=== PATIENT | female | born 1995 | race Caucasian/White ===

== ENCOUNTER 2017-03-08 18:43 | Emergency (ER) | payer SELFPAY ==
[2017-03-08] MEDS ORDERED: Ibuprofen 600 MG TAB ONE (19:41)
[2017-03-08] MEDS ORDERED: HYDROcodone/Acetaminophen 5/325 mg Tablet ONE (19:41)
== END 2017-03-08 19:52 | disposition home or self-care (01) ==
LOC: SCSER 18:43
DX: J10.1 Influenza due to other identified influenza virus with other respiratory manifestations (principal); J45.909 Unspecified asthma, uncomplicated
CPT/HCPCS: 99283

== ENCOUNTER 2017-03-14 10:11 | Emergency (ER) | payer SELFPAY ==
[2017-03-14 10:52] LABS: Bilirubin Negative (Negative); Blood, Urine Negative (Negative); Glucose, Urine (Dipstick) Negative (Negative); Ketone, Urine 15 mg/dL (Negative); Nitrite Negative (Negative); Protein, Urine (Dipstick) Negative (Neg-Trace)
[2017-03-14 11:01] LABS: Bacteria/HPF 1+ HPF (None Seen); RBC/HPF 0-3 HPF (0-3); WBC/HPF 0-3 HPF (0-3)
[2017-03-14] MEDS ORDERED: Azithromycin 250 MG TAB ONE (14:09)
[2017-03-14] MEDS ORDERED: cefTRIAXone\\ROCEPHIN 250 MG VIAL ONE (14:09)
[2017-03-14] MEDS ORDERED: Lidocaine 1% PF 5 ML VIAL ONE (14:09)
== END 2017-03-14 14:15 | disposition home or self-care (01) ==
LOC: SCSER 10:11
DX: O99.89 Other specified diseases and conditions complicating pregnancy, childbirth and the puerperium (principal); R10.2 Pelvic and perineal pain; O99.511 Diseases of the respiratory system complicating pregnancy, first trimester; J45.909 Unspecified asthma, uncomplicated; Z3A.01 Less than 8 weeks gestation of pregnancy
CPT/HCPCS: 81003; 81015; 81025; 87480; 87491; 87510; 87591; 87660; 96372; J0696; J2001

== ENCOUNTER 2017-04-03 14:18 | Emergency (ER) | payer OTHER, SELFPAY ==
[2017-04-03 14:55] LABS: Bilirubin Negative (Negative); Blood, Urine Trace (Negative); Clarity Slightly Cloudy (Clear); Glucose, Urine (Dipstick) Negative (Negative); Leukocyte Moderate (Negative); Nitrite Positive (Negative); Protein, Urine (Dipstick) 30 mg/dL (Neg-Trace); Urobilinogen 0.2 mg/dL (0.2-1.0)
[2017-04-03 15:01] LABS: Specific Gravity, Urine 1.028 (1.002-1.036)
[2017-04-03 15:04] LABS: WBC/HPF 21-50 HPF (0-3)
[2017-04-03 15:05] LABS: Bacteria/HPF 3+ HPF (None Seen)
[2017-04-03 15:06] LABS: Hyaline Casts/LPF 0-3 HYALINE CAST LPF (0-3 Hyaline)
--- NOTE | 2017-04-03 16:31 | ULT ---
PELVIC ULTRASOUND 04/03/17 HISTORY: Pelvic pain, early . FINDINGS: The uterus measures 8.8 cm x 5.1 cm x 6.3 cm. There is a fluid collection seen in the endometrial can al. A pole as well as yolk sac are visualized. Cardiac doppler does demonstrate heart ton es with a heart rate of 139 beats per minute. The crown-rump length measures 1.3 cm which is co nsistent with gestational age by ultrasound of 7 weeks and 4 days with BARBARA on 11/16/17. Gestational ag e by the last menstrual period is 6 weeks, and 3 days. There are no findings to suggest a subchorionic hemorrhage. The fallopian tubes are not seen bilaterally. The ovaries demonstrate a normal transabdominal sonogra phic appearance with the right ovary measuring 3.8 cm x 1.5 cm and the left ovary measuring 1.6 cm x 2.8 cm x 1.8 cm. No free fluid is seen in the cul-de-ac. IMPRESSION: 1. Single intrauterine gestation with heart tones documented. Gestational age by measureme nt of the crown-rump length is 7 weeks and 4 days with BARBARA on 11/16/17. 2. Normal appearing bilateral ovaries. POS: [facility]
== END 2017-04-03 16:49 | disposition home or self-care (01) ==
LOC: SCSER 14:18
DX: O23.11 Infections of bladder in pregnancy, first trimester (principal); O99.89 Other specified diseases and conditions complicating pregnancy, childbirth and the puerperium; R10.30 Lower abdominal pain, unspecified; O99.511 Diseases of the respiratory system complicating pregnancy, first trimester; J45.909 Unspecified asthma, uncomplicated; Z3A.01 Less than 8 weeks gestation of pregnancy
CPT/HCPCS: 36415; 76856; 81003; 81015; 84702; 87077; 87086; 87186; 93976

== ENCOUNTER 2017-05-05 15:27 | Emergency (ER) | payer OTHER ==
[2017-05-05 16:40] LABS: Bilirubin Negative (Negative); Blood, Urine Negative (Negative); Glucose, Urine (Dipstick) Negative (Negative); Leukocyte Negative (Negative); Nitrite Negative (Negative); Protein, Urine (Dipstick) 30 mg/dL (Neg-Trace)
[2017-05-05 16:41] LABS: Clarity Hazy (Clear); Specific Gravity, Urine 1.025 (1.002-1.036)
[2017-05-05 16:51] LABS: RBC/HPF None Seen HPF (0-3)
[2017-05-05 16:52] LABS: Bacteria/HPF 3+ HPF (None Seen)
== END 2017-05-05 17:02 | disposition home or self-care (01) ==
LOC: SCSER 15:27
DX: O9A.211 Injury, poisoning and certain other consequences of external causes complicating pregnancy, first trimester (principal); S39.012A Strain of muscle, fascia and tendon of lower back, initial encounter; O99.511 Diseases of the respiratory system complicating pregnancy, first trimester; J45.909 Unspecified asthma, uncomplicated; Z3A.11 11 weeks gestation of pregnancy; X58.XXXA Exposure to other specified factors, initial encounter
CPT/HCPCS: 81003; 81015; 99283

== ENCOUNTER 2017-05-16 14:41 | Emergency (ER) | payer OTHER | END 2017-05-16 15:25 | disposition home or self-care (01) | LOC: SCSER 14:41 | DX: O21.9 Vomiting of pregnancy, unspecified (principal); O99.511 Diseases of the respiratory system complicating pregnancy, first trimester; J45.909 Unspecified asthma, uncomplicated; O98.311 Other infections with a predominantly sexual mode of transmission complicating pregnancy, first trimester; Z3A.13 13 weeks gestation of pregnancy; Z79.899 Other long term (current) drug therapy | CPT/HCPCS: 99283 ==

== ENCOUNTER 2017-05-28 19:41 | Emergency (ER) | payer OTHER | END 2017-05-28 20:07 | disposition home or self-care (01) | LOC: SCSER 19:41 | DX: O99.89 Other specified diseases and conditions complicating pregnancy, childbirth and the puerperium (principal); R51 Headache; O99.512 Diseases of the respiratory system complicating pregnancy, second trimester; J45.909 Unspecified asthma, uncomplicated; Z3A.15 15 weeks gestation of pregnancy | CPT/HCPCS: 99283 ==

== ENCOUNTER 2017-06-25 19:23 | Emergency (ER) | payer OTHER ==
[2017-06-25 20:59] LABS: Bilirubin Negative (Negative); Blood, Urine Negative (Negative); Clarity Clear (Clear); Glucose, Urine (Dipstick) Negative (Negative); Leukocyte Trace (Negative); Nitrite Negative (Negative); Protein, Urine (Dipstick) Negative (Neg-Trace); pH, Urine 6.5 (5.0-9.0)
[2017-06-25 21:04] LABS: Bacteria/HPF 2+ HPF (None Seen); RBC/HPF 0-3 HPF (0-3); Squamous Epithelial 0-3 HPF (0-3)
== END 2017-06-25 21:43 | disposition home or self-care (01) ==
LOC: SCSER 19:23
DX: O99.89 Other specified diseases and conditions complicating pregnancy, childbirth and the puerperium (principal); M54.5 Low back pain; O99.512 Diseases of the respiratory system complicating pregnancy, second trimester; J45.909 Unspecified asthma, uncomplicated; Z3A.19 19 weeks gestation of pregnancy
CPT/HCPCS: 81003; 81015; 87086; 99283

== ENCOUNTER 2017-07-27 19:36 | Emergency (ER) | payer OTHER ==
[2017-07-27 19:58] LABS: Bilirubin Negative (Negative); Blood, Urine Negative (Negative); Clarity Hazy (Clear); Glucose, Urine (Dipstick) Negative (Negative); Leukocyte Trace (Negative); Nitrite Negative (Negative); Protein, Urine (Dipstick) 30 mg/dL (Neg-Trace); Specific Gravity, Urine 1.028 (1.002-1.036); Urobilinogen 0.2 mg/dL (0.2-1.0); pH, Urine 6.5 (5.0-9.0)
[2017-07-27 20:04] LABS: Bacteria/HPF 2+ HPF (None Seen); RBC/HPF None Seen HPF (0-3)
== END 2017-07-27 20:39 | disposition home or self-care (01) ==
LOC: SCSER 19:36
DX: O99.89 Other specified diseases and conditions complicating pregnancy, childbirth and the puerperium (principal); M54.5 Low back pain; O99.352 Diseases of the nervous system complicating pregnancy, second trimester; G89.29 Other chronic pain; O99.342 Other mental disorders complicating pregnancy, second trimester; O99.512 Diseases of the respiratory system complicating pregnancy, second trimester; F41.9 Anxiety disorder, unspecified; J45.909 Unspecified asthma, uncomplicated; Z3A.24 24 weeks gestation of pregnancy
CPT/HCPCS: 81003; 81015; 87086; 99283

== ENCOUNTER 2017-08-13 16:04 | Day surgery (SDC) | payer OTHER ==
[2017-08-13 16:48] VITALS: BP 119/62; TEMP 98.3; BMI 25.9
--- NOTE | 2017-08-13 18:29 | PDOC.LDHP ---
Labor and Delivery H&P Chief complaint: contractions HPI: 22 at 26.3 wks, unknown how she is dated, who was sent here from [facility] with concern for contractions and loss of mucus plug. Pt states that she has been brenden most of the day. She denies loss of fluid, vaginal bleeding, abd pain, or decreased movement. Her previous resulted in at 30 weeks gestation. Today at [facility] she was positive for BV and vaginal candidiasis. Her SVE found her to be dilated to 1cm. She due to her history she was had ordered to have progesterone, however her compliance with treatment has been intermittent. Current gestational age (weeks): 26 (26.3) Due date: 11/16/17 Dating criteria: other (unknown) Grav: 2 Para: 1 (0101) Current complications: other (BV and vaginal candidiasis) Current medications: pre- vitamins, other (progesterone) Social history: none - Physical Exam Vital signs reviewed and normal: yes General: NAD Heart: RRR Lungs: CTAB Abdomen: gravid Extremeties: no edema FHT: category 1, variability present, absent or minimal variables [place] contractions every: None - Vaginal Exam cm dilated: 1 Effacement: 50% Station: -3 - OB Labs Blood type: unknown RH: unknown Antibody Screen: unknown HIV: unknown RPR: unknown HEPSAg: unknown 1 hour GCT: unknown GBS: unknown Urine drug screen: not done - Assessment 1. 2nd trimester , evaluation for labor 2. BV 3. Vaginal kali - Plan -: Continue to monitor FHT, currently Cat 1 strip.Pt was 1cm in clinic and 1cm here after 1 hour of monitoring. Does not appear to be changing, there are no contractions on monitor. Will order UA. Assuming normal result, will send home with followup as scheduled outpatient Regarding BV, rx has been called in from [facility]. 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 <Joe Henriquez - Last Filed: 08/13/17 18:25> <Sukhjinder Rodriguez - Last Filed: 08/14/17 07:09> Allergies/Adverse Reactions: Allergies Allergy/AdvReac Type Severity Reaction Status Date / Time No Known Drug Allergies Allergy Verified 08/13/17 16:48 Attending Addendum - Attending Addendum Date/Time: 08/14/17 0705 I personally evaluated the patient and discussed the management with Dr. Henriquez and Dr. Olivarez. I agree with and repeated the History, Examination, Assessment and Plan documented above with any addition or exceptions noted below. At the time of my evaluation no contractions, +FM, denies preE symptoms. She is frustrated she is still in the hospital. Unable to send FFN d/t recent exam x 2 prior to me being called. PMH/PSH: noncontributory No fever, chills, dysuria, urgency FHT: cat 1 [place]: no contractions SVE: unchanged after several hours between clinic and here A/P: tPTL with no contractions and low suspicion for CI. Will hold off on cervical length after discussing with PCP. Tx BV. Follow up at [facility]. Return precauations discussed. <Sukhjinder Rodriguez - Last Filed: 08/14/17 07:09>
[2017-08-13 19:38] LABS: Bilirubin Negative (Negative); Blood, Urine Negative (Negative); Clarity CLEAR (Clear); Glucose, Urine (Dipstick) Negative (Negative); Leukocyte Negative (Negative); Nitrite Negative (Negative); Protein, Urine (Dipstick) Negative (Neg-Trace); Specific Gravity, Urine 1.011 (1.002-1.036)
[2017-08-13 19:40] LABS: Bacteria/HPF None Seen HPF (None Seen); Hyaline Casts/LPF 0-3 HYALINE CAST LPF (0-3 Hyaline); RBC/HPF 0-3 HPF (0-3); Squamous Epithelial 0-3 HPF (0-3); WBC/HPF 0-3 HPF (0-3)
== END 2017-08-13 20:02 | disposition home or self-care (01) ==
LOC: L&D/OP 16:04
PROVIDERS: ATTEND Student in an Organized Health Care Education/Training Program
DX: O47.02 False labor before 37 completed weeks of gestation, second trimester (principal); O98.812 Other maternal infectious and parasitic diseases complicating pregnancy, second trimester; B37.9 Candidiasis, unspecified; O23.592 Infection of other part of genital tract in pregnancy, second trimester; N76.0 Acute vaginitis; B96.89 Other specified bacterial agents as the cause of diseases classified elsewhere; Z79.818 Long term (current) use of other agents affecting estrogen receptors and estrogen levels; Z79.899 Other long term (current) drug therapy; Z3A.26 26 weeks gestation of pregnancy
CPT/HCPCS: 81001; 99283

== ENCOUNTER 2017-09-10 17:30 | Observation (INO) | payer OTHER ==
[2017-09-10 18:01] VITALS: BMI 26.9
[2017-09-10 18:40] LABS: #Eosinphils 0.1 thou/uL (0.0-0.7); #Lymphocytes 1.3 thou/uL (1.20-3.40); #Monocytes 0.5 thou/uL (0.11-0.59); #Neutrophils 5.3 thou/uL (1.40-6.50); %Basophils 0.1 % (0.0-1.0); %Eosinophils 1.1 % (0.0-10.0); %Lymphocytes 17.9 % (21.0-51.0); %Monocytes 6.8 % (0.0-10.0); Hemoglobin 8.8 g/dL (12.0-16.0); Mean Corpuscular HGB CONC 32.8 g/dL (32.0-36.0); Mean Corpuscular Hemoglobin 26.9 pg (27.0-31.0); Mean Platelet Volume 7.4 fL (7.4-10.4); Platelet Count 191 thou/uL (130-400); RBC Distribution Width 12.2 % (11.5-14.5); Red Blood Cell (RBC) Count 3.29 mill/uL (4.20-5.40); White Blood Cell (WBC) Count 7.2 thou/uL (4.8-10.8)
[2017-09-10 18:55] LABS: Glucose 124 mg/dL (70-105)
[2017-09-10 19:37] LABS: Syphilis Antibody Nonreactive (Nonreactive); Syphilis Antibody Index 0.02 S/CO (<1.00 Non-Reactive)
[2017-09-10 19:42] LABS: Bilirubin Negative (Negative); Blood, Urine Negative (Negative); Clarity CLEAR (Clear); Glucose, Urine (Dipstick) 500 mg/dL (Negative); Leukocyte Negative (Negative); Nitrite Negative (Negative); Protein, Urine (Dipstick) Negative (Neg-Trace); Specific Gravity, Urine 1.009 (1.002-1.036); pH, Urine 6.5 (5.0-9.0)
[2017-09-10 19:52] LABS: HIV (1/2) Antibody/Antigen Non-Reactive (NonReactive); HIV 1/2 INDEX 0.12 S/CO (<1.00)
[2017-09-10] MEDS ORDERED: Clotrimazole 2% 3 Day Vag Cr 22.2 GM TUBE VAG SCH (20:00)
[2017-09-10 20:16] LABS: Medtox Reader # READER 1; THC/Cannabinoid Screen Detected (NotDetected)
--- NOTE | 2017-09-10 20:16 | PDOC.LDHP ---
Labor and Delivery H&P Chief complaint: contractions HPI: 22 yo @ 30.3 by LMP consistent w/ 7.4 US presents for concern of labor. Pt has an obstetrical hx positive for labor in her first and delivered vaginally @ 30.3 then. She has not had any noted complication in this until now. She was given progesterone earlyier this ;however, she has not ocntinued progesterone therapy. [facility] and her cervical exam was noted to be 3cm,50%, midposition and soft. She was sent for further evaluation at [facility]. US here shows a cervical length of 2.2cm, anterior placenta, vertex presentation an abi of 6.6 and size measuring 30.2. She had very rare contractions which have since subsided after IVF bolus. Her repeat cervical check was unchanged approx 4 hours from original. Current gestational age (weeks): 30 (+3) Dating criteria: last menstrual period, first trimester ultrasound Grav: 2 Para: 1 (0101) Current complications: none Abnormal US findings: No Current medications: none (Has not taken vitamins for approx 28 weeks) Previous surgical history: other Social history: drug use (marijuana) - Physical Exam Vital signs reviewed and normal: yes General: NAD Heart: RRR Lungs: CTAB Abdomen: NTTP Extremeties: no edema FHT: category 1 [place] contractions every: none - Vaginal Exam cm dilated: 3 Effacement: 50% Station: -3 - OB Labs Blood type: A RH: positive Antibody Screen: negative HIV: negative RPR: negative HEPSAg: negative 1 hour GCT: negative GBS: unknown Urine drug screen: positive Rubella: immune - Assessment L&D Assessment: labor - Plan Plan: admit to L&D -: 1) labor, suspected -admit l&d - celestone X2, monitor - 3T labs - DESIGN ENGINEERING TECHNICIAN# - continuous monitoring for now - IL LR bolus - will continue to monitor for s/s labor - pt instructed to inform nurse if any LOF, vaginal bleeding or contractions - no mag now as pt was unchanged from previous cervical exam, if any change at all or continuing contraction will alter management course at that time - GBS swab pending, ppx if s/s of labor persist 2) Drug abuse in : - consider CM consult - prenatal genetic counselor on cessation <Dedrick Lynn - Last Filed: 09/10/17 23:19> <Logan Martínez - Last Filed: 09/11/17 04:42> Allergies/Adverse Reactions: Allergies Allergy/AdvReac Type Severity Reaction Status Date / Time No Known Drug Allergies Allergy Verified 08/13/17 16:48 Attending Addendum - Attending Addendum Date/Time: 09/11/17 0441 I personally evaluated the patient and discussed the management with Dr. Lynn and Sher. I agree with the History, Examination, Assessment and Plan documented above with any addition or exceptions noted below. <Logan Martínez - Last Filed: 09/11/17 04:42>
[2017-09-10 20:17] LABS: Amphetamine Not Detected (NotDetected); Barbiturates Screen Not Detected (NotDetected); Benzodiazepine Screen Not Detected (NotDetected); Cocaine Metabolite Screen Not Detected (NotDetected); Medtox Control Line Valid? VALID (VALID); Methadone Not Detected (NotDetected); Methamphetamine Not Detected (NotDetected); Opiate Screen Not Detected (NotDetected); Oxycodone Screen Not Detected (NotDetected); Phencyclidine (PCP) Not Detected (NotDetected); Tricyclic Screen Not Detected (NotDetected)
[2017-09-10] MEDS ORDERED: Promethazine HCl 25 MG/ML VIAL IM PRN (20:18)
[2017-09-10] MEDS ORDERED: Ondansetron HCl/PF 4 MG/2 ML Vial IVP PRN (20:18)
[2017-09-10] MEDS ORDERED: Lactated Ringer's 1,000 ML IV SCH (20:30)
--- NOTE | 2017-09-10 20:38 | ULT ---
ULTRASOUND OBSTETRICAL COMPLETE: 09/10/2017 HISTORY: Pre-term labor in a 22-year-old female. FINDINGS: number: Jones. lie: Cephalic. Maternal cervix: 2 cm long and closed. Placenta: Anterior. No placenta previa. Amniotic fluid volume: Subjectively low. MARILU 6.5 cm. heart rate: 173 bpm The following anatomy is visualized, with no evidence of anomalies: bladder, bilateral kidneys, three-vessel cord, four-chamber heart, and stomach. The rest of the anatomy is poor visualized. biometry: Head circumference (HC): 28.0 cm 30w 4d Biparietal diameter (BPD): 7.4 cm 29w 6d Abdominal circumference (AC): 25.9 cm 30w 0d Femur length (FL): 5.7 cm 30w 0d Average ultrasound age (AUA): 30w 2d Estimated date of confinement (EDC): 11/17/2017 Last menstrual period (LMP): 02/09/2017 Gestational age by LMP: 30w 3d Estimated weight (EFW): 1505 g, +/- 223 g (3 lbs 5 oz, +/- 8 oz). IMPRESSION: 1. Live third trimester intrauterine gestation. 2. Estimated gestational age of 30 weeks, 2 days. 3. Cephalic lie. 4. Oligohydramnios. 5. Cervix 2 cm, possibly effaced. DOC Springer POS: [facility]
--- NOTE | 2017-09-10 20:50 | PDOC.EVN ---
Event Note - Event Note Event Note: Date/Time: 09/10/172044 I personally evaluated the patient and discussed the management with Dr. Lynn and Dr Olivarez. I agree with the History, Examination, Assessment and Plan. See H&P. Patient was noted to have CTXs earlier today but which has resolved currently Seen in Clinic today by Dr Olivarez who noted 3cm dilation. ultrasound reviewed. Labs reviewed. GBS, GC/Chlamydia, VP3 obtained. Candidasis noted. Will treat. Heart tones have a baseline of 150 with accels noted. In light of prior delivery, we will initiate steroids and observe for CTXs and reassess for cervical change. If progresses into Labor, will initiate Mag for neuroprotection.
[2017-09-10] MEDS: Betamet Acet/Betamet Na Ph 30 MG/5 ML VIAL IM SCH (21:09)
--- NOTE | 2017-09-10 22:13 | PDOC.EVN ---
Event Note - Event Note Event Note: Nurse reports cervix remains 3cm dilated on recheck. No CTX on Tocodynamometer noted. FHTs remain with baseline of 150 with accels. Steroids initiated. She is not in labor at this time. Continue monitoring. +MJ on UDS.
[2017-09-11 01:10] LABS: HBSAg Index 0.16 S/CO (0-0.99); Hep B Surf Ag Non-Reactive S/CO (NonReactive)
[2017-09-11] MEDS: Cepastat Lozenges 1 LOZ PO PRN ×3 (02:08→10:31)
--- NOTE | 2017-09-11 02:58 | PDOC.LDPN ---
Labor & Delivery Progress Note - Subjective Subjective: comfortable - Objective Vital signs reviewed and normal: yes General: NAD Uterine fundus: atonic Dilation: 3 Effacement: 50% Station: -3 FHT: category 1, variability present [place] contractions every: None Plan: continue plan of care -: Threatened labor) - no contraction on monitor and no cervaicl change - intermittent monitoring q4hr - if any evidence of contractions recheck cervix + GBS ppx and mag for neuro protection, otherwise continue plan of care and give celestone x2
--- NOTE | 2017-09-11 07:56 | PDOC.LDPN ---
Labor & Delivery Progress Note - Subjective Subjective: comfortable, other (patient denies ROM, bleeding, discharge, <1 min cxns while sleeping) - Objective Vital signs reviewed and normal: yes General: NAD Uterine fundus: non tender FHT: category 1 [place] contractions every: No contractions on monintorring, minor irritability - Assessment (1) History of delivery Code(s): Z87.51 - PERSONAL HISTORY OF PRE-TERM LABOR Current Visit: Yes Status: Acute -: PE Gen: No acute distress, answers questions appropriately CV: RRR, no murmur Pulm: CTAB, no increased work of breathing Abd: gravid, NTTP Ext: pulses intact, no edema 1) Labor rule out - celestone at 2030 on 09/10 - no cervical change at last check - 3T labs negative - VP3 shows zoya - no contractions after bolus, on monitorring overnight - intermittent monitioring overnight - GBS swab pending, ppx if s/s of labor persist 2) Drug abuse in : - cannabis positive on UDS - college and career counselor on cessation 3) Zoya - clotrimazole cream
[2017-09-11 08:32] VITALS: TEMP 99.2
[2017-09-11] MEDS ORDERED: diphenhydrAMINE 25 MG CAP PO PRN (10:21)
[2017-09-11] MEDS ORDERED: Acetaminophen 500 MG TAB PO PRN (10:21)
[2017-09-11 20:44] VITALS: BP 119/61
[2017-09-11] MEDS ORDERED: Clotrimazole 2% 3 Day Vag Cr 22.2 GM TUBE VAG SCH ×2 (21:00)
[2017-09-11] MEDS: Betamet Acet/Betamet Na Ph 30 MG/5 ML VIAL IM SCH (21:13)
[2017-09-11 21:20] LABS: Chlamydia by PCR DETECTED (NotDetected)
--- NOTE | 2017-09-12 07:36 | PDOC.LDPN ---
Labor & Delivery Progress Note - Subjective Subjective: comfortable (Reports occasional back contractions. No VB or LF. Pos FM. ) - Objective Vital signs reviewed and normal: yes General: NAD, resting Uterine fundus: non tender SVE: Deferred. Last 09/10/17 = FHT: category 1 (FHT reactive. ) - Assessment (1) labor in third trimester Code(s): O60.03 - LABOR WITHOUT DELIVERY, THIRD TRIMESTER Status: Acute Qualifiers: labor delivery status: without delivery Qualified Code(s): O60.03 - labor without delivery, third trimester Comment: Patient 30.4 wks by 7.4 wk sono admitted for labor. Appears to have occured over the weekend sponateously and has since stopped except for the occasional contractions. Patient has recieved 1st dose BMZ. Has not required tocolytics or mag for neuroprotection. Infection workup negative except for candidia. SVE unchanged from 09/10 -- . Fetus is cephalic. EFW at 26%. MARILU borderline at 6 cm. One individual pocket of 3.7 cm. Will need to discuss case with COATING OPERATOR for monitoring in hospital due to risk of PTD prior to 32 wks with risk. Would consider watching through the weekend. Will need repeat sono with BPP. (2) Low amniotic fluid Code(s): O41.00X0 - OLIGOHYDRAMNIOS, UNSP TRIMESTER, NOT APPLICABLE OR UNSP Status: Acute Qualifiers: Fetus number: single or unspecified fetus Trimester: third trimester Qualified Code(s): O41.03X0 - Oligohydramnios, third trimester, not applicable or unspecified Comment: Needs repeat BPP with dopplers in AM. Plan: continue plan of care
[2017-09-12 11:29] LABS: GC by PCR Not Detected (NotDetected)
== END 2017-09-11 22:45 | disposition home or self-care (01) ==
LOC: L&D/OP 17:30 → L&D 20:34
PROVIDERS: ADMIT Family Medicine; ATTEND Family Medicine
DX: O60.03 Preterm labor without delivery, third trimester (principal); O41.03X0 Oligohydramnios, third trimester, not applicable or unspecified; F19.10 Other psychoactive substance abuse, uncomplicated; Z3A.30 30 weeks gestation of pregnancy
CPT/HCPCS: 36415; 76815; 80306; 81003; 82947; 85025; 86780; 87081; 87086; 87340; 87389; 87480; 87491; 87510; 87591; 87660; 96372; 99285; G0378; J0702

== ENCOUNTER 2017-09-12 12:21 | Inpatient (IN) | payer OTHER ==
[2017-09-12 13:08] VITALS: BMI 26.1
[2017-09-12] MEDS ORDERED: Ondansetron ODT 4 MG TAB PO PRN (13:42)
[2017-09-12] MEDS ORDERED: Ondansetron HCl/PF 4 MG/2 ML Vial IVP PRN ×2 (13:42→13:45)
[2017-09-12] MEDS ORDERED: Lactated Ringer's 1,000 ML IV SCH (13:45)
[2017-09-12] MEDS ORDERED: Promethazine HCl 25 MG/ML VIAL IM PRN (13:45)
[2017-09-12] MEDS ORDERED: Acetaminophen 500 MG TAB PO PRN (13:45)
[2017-09-12] MEDS ORDERED: Butorphanol Tartrate 1 MG/ML VIAL SLOW IVP PRN (13:45)
--- NOTE | 2017-09-12 14:07 | PDOC.LDHP ---
Labor and Delivery H&P Chief complaint: contractions HPI: 22yo @ 30.5wk by LMP c/w 7.4wk US who presents to [facility] L&D for contractions. She was sent here from her appt at [facility] today where she had an NST due to high risk status and was noted to be brenden approx q5min. She additionally was treated for Chlamydia with 1000mg Azithromycin po and then became nauseous and vomited. She was sent here for further evaluation and management. Pt was recently here 09/10-09/12 for threatened PTL after a cervical exam in the outpt setting was noted to be 3/50/-2. She was noted to have ctx upon arrival q 5-7 min, which then spaced out after 1L IVF bolus. During her hospital stay, she had occasional contractions but never had a regular ctx pattern and cervix remained unchanged. She received betamethasone x 2 q24hr with last dose 2100 on 09/11/17. She then requested discharge home with outpt follow up and was seen this morning at [facility] as above. Since her discharge home, pt stated her ctx picked up at about 2am and became stronger. Feeling them all in her back. Endorses blood-tinged mucus, but no overt VB. No noted LOF. Nml Mvmt. OB Hx sig for 1st PTL & delivery at 30.3wk after Mag w/ NICU stay. US here on 09/10 showed cervical length of 2.2cm and marilu of 6.5 Current gestational age (weeks): 30 (5 days) Due date: 11/16/00 Dating criteria: last menstrual period Grav: 2 Para: 1 OB History Details: 1) prior PTL + delivery at 30wk 3days 2) insufficient care due to noncompliance 3) MJ use in 4) Low MARILU (previously measured at 6.5) this Current complications: other Abnormal US findings: Yes (CL 2.2cm, MARILU 6.5) Past Medical History: none Current medications: pre- vitamins Previous surgical history: none Allergies/Adverse Reactions: Allergies Allergy/AdvReac Type Severity Reaction Status Date / Time No Known Drug Allergies Allergy Verified 09/11/17 08:33 Social history: drug use (MJ Use (has quit), +UDS 09/10/17) - Physical Exam Vital signs reviewed and normal: yes General: breathing through contractions Heart: RRR Lungs: CTAB Abdomen: NTTP Extremeties: no edema FHT: category 1 [place] contractions every: difficult to pic up on external toco, but q 2-7min - Vaginal Exam cm dilated: 3 (3-4/60/-2 per RN) Effacement: 50% Station: -2 - OB Labs Blood type: A RH: positive Antibody Screen: negative HIV: negative RPR: negative HEPSAg: negative 1 hour GCT: negative GBS: unknown Urine drug screen: positive (marijuana) Rubella: immune - Assessment L&D Assessment: labor - Plan Plan: observation in L&D -: 22yo at 30.5wk here with painful regular contractions- 1) Threatened PTL- cervical exam similar to 1-2 hrs previously upon arrival, difficulty picking up ctx on toco but appear to be painful & regular. give IVF. s/p betamethasone x 2 (last dose 2100- 09/11). Will start Mag sulfate for neuroprotection & give indomethacin as <32wk for tocolysis. PCN for GBS prophylaxis (swabbed 09/10, results pending). Will get OB Consult with Dr. Palacios given high risk and EGA. 2) Low MARILU- last MARILU 6.5, but DVP reassuring at 3.7 previously. Repeat BPP with dopplers now. Sterile spec exam to rule out ROM (amnisure would likely lead to false +). 3) chlamydia- s/p po azithromycin but vomited meds, will re-treat with IV azithromycin 1gm now. 4) vulvovaginal candidiasis- continue PV clotrimazole tx. 5) insufficient PNC- neg 1hr GTT, 3T labs wnl aside from mild anemia 6) anemia of - start po iron. 7) MJ abuse in - has since stopped per pt report. +UDS on 09/10.
[2017-09-12 14:15] LABS: Hemoglobin 9.5 g/dL (12.0-16.0); Mean Corpuscular HGB CONC 33.8 g/dL (32.0-36.0); Mean Corpuscular Hemoglobin 27.5 pg (27.0-31.0); Mean Corpuscular Volume 81.4 fL (78.0-98.0); Platelet Count 241 thou/uL (130-400); RBC Distribution Width 12.4 % (11.5-14.5); Red Blood Cell (RBC) Count 3.45 mill/uL (4.20-5.40); White Blood Cell (WBC) Count 11.7 thou/uL (4.8-10.8)
--- NOTE | 2017-09-12 14:57 | PDOC.APC ---
Antepartum Consult PAUL CHAVES is a 22 year old female , multigravida, at 30 weeks 5 days gestational weeks. Time: 151 Requesting MD: Dr Arnold/Zac with FM Reason for consult: Threatened labor at 30 weeks 5 days HPI: In brief, I discussed this case with Dr Arnold and Dr Frank in person and have reviewed the case to date. This patient is a 22 yo with a past delivery at 30 weeks, now with presentation of persistent contractions. She was actually admitted previously but left AMA last PM and has now returned for contractions but no VB or LOF. While she was noted to be 1cm last week in clinic , she is now 3-4cm/60/-2 today while she was about 3cm yesterday. She has received NICU consultation, steroids, and has been treated for Chlamydia this admit (needs retreatant as she threw up the first dose). She has good FM and is otherwise well. BPP was done just now with score 6/8 for lack of breathing and largest pocket at 2.1...no HX of LOF. Past medical: none Surgical: none Social: marijuana use (pos tox screen 3 days ago) Meds: PNV PHYSICAL: VSS afebrile Last CX was 3-4/60/-2 No gross evidence of ROM Sono recently with translabial cervical length of 2.2 (Sunday this week). EFW approx 1.5 kiols Cephalic presentation Assessment: THREATENED PTL AT 30 WEEKS AND 5 DAYS S/P CELESTONE X2, UNKNOWN gbs. Plan: 1. BPP is borderline but per ACOG may reflect EGA prematurity. OK to repeat modified BPP in 24 hrs 2. Mag sulfate for neuroprotection 3. Send off GBS 4. PCN for now until GBS returns 5. [place] for CT 6. NICU consult done 7. Needs sterile spec exam. 8. OK for single dose Indocin as EGA under 32 weeks for attempt at tocolysis per ACOG Bulletin 171
[2017-09-12 15:15] LABS: HBSAg Index 0.18 S/CO (0-0.99); Hep B Surf Ag Non-Reactive S/CO (NonReactive)
[2017-09-12 15:16] LABS: Syphilis Antibody Nonreactive (Nonreactive); Syphilis Antibody Index 0.03 S/CO (<1.00 Non-Reactive)
[2017-09-12] MEDS ORDERED: Calcium Gluc 4.6 MEQ/10 ML (100 MG/ML) SLOW IVP PRN (15:22)
--- NOTE | 2017-09-12 15:23 | ULT ---
ULTRASOUND BIOPHYSICAL PROFILE: Date: 09/12/17 HISTORY: 30 weeks labor, low MARILU previously. FINDINGS: Single live intrauterine gestation is seen with a heart rate of 153 beast/minute. MARILU measures 4.7 cm. Placenta is anteriorly located. Biophysical Profile: tone: 2 breathin movement: 2 Amniotic fluid: 2 IMPRESSION: Ultrasound biophysical profile score is 6 out of 8. Verbal results were given to Dr. Frank at the time of the exam. CODE CR. POS: [facility]
[2017-09-12] MEDS: Lactated Ringer's 1,000 ML IV SCH (15:30)
[2017-09-12] MEDS ORDERED: Magnesium Sulfate 20 gm/500 ml 20 GM/500 ML BAG IVPB SCH (15:30)
[2017-09-12] MEDS ORDERED: Magnesium Sulfate 20 gm/500 ml 20 GM/500 ML BAG ONE (15:31)
[2017-09-12] MEDS ORDERED: Indomethacin 25 mg Capsule PO SCH (15:45)
[2017-09-12] MEDS ORDERED: Azithromycin 1,000 MG in Sodium Chloride 0.9% 500 ML IVPB SCH (15:45)
[2017-09-12] MEDS ORDERED: Magnesium Sulfate 20 GM/WATER 500 ML BAG IVPB SCH (15:45)
[2017-09-12] MEDS ORDERED: Magnesium Sulfate 4 GM in Sodium Chloride 0.9% 250 ML 250 ML IVPB SCH (16:00)
[2017-09-12] MEDS ORDERED: Penicillin G Potassium 5 MILL.UNITS in Sodium Chloride 0.9% 100 ML IVPB SCH (16:00)
[2017-09-12] MEDS ORDERED: Ferrous Sulfate 325 MG TAB PO SCH (18:00)
[2017-09-12] MEDS: Clotrimazole 2% 3 Day Vag Cr 22.2 GM TUBE VAG SCH (21:47)
[2017-09-12] MEDS: Docusate 100 MG CAP PO SCH (23:34)
--- NOTE | 2017-09-13 00:02 | PDOC.EVN ---
Event Note - Event Note Event Note: Patient is seen for Mag check. She is resting comfortably although reports recent painful contractions, still not evidenced on toco strip. Patient denies SOB, N/V, and weakness. PE: Lungs: CTAB, no increased work of breathing Cardio: RRR Abd: no palpable ctx, gravid Neuro: 3/4 DTR's in UE and LE MSK: strength 5/5 in UE and LE Cervical exam: /- Will continue to monitor patient for Mag toxicity. No evidence at this time. She continues to make cervical change despite tocolysis with Mg and Indomethacin. Continue Mg for neuroprotection x24h.
[2017-09-13] MEDS: Pen G 2.5 MILL.UNITS/50 ML BAG IVPB SCH ×4 (00:20→12:35)
[2017-09-13] MEDS: Lactated Ringer's 1,000 ML IV SCH ×2 (02:23→11:41)
--- NOTE | 2017-09-13 04:28 | PDOC.EVN ---
Event Note - Event Note Event Note: Patient is resting comfortably, sleeping, not reporting any contractions at this time. She denies SOB, leg weakness, but does feel somewhat unsteady on her feet when walking to the bathroom. VS: BP-95/54, R-16 PE: General: AOX3, sleeping Lungs: CTAB, no increased work of breathing Neuro: DTR diminished throughout UE and LE Patient exhibiting some signs of Mag toxicity although patient did not allow for thorough exam so will recheck in 1-2h.
--- NOTE | 2017-09-13 04:37 | PDOC.EVN ---
Event Note - Event Note Event Note: Patient is resting comfortably, sleeping, continues to deny contractions at this time. She denies SOB, leg weakness, but does feel leg heaviness. VS: BP-115/57, R-16 PE: General: AOX3, sleeping Lungs: CTAB, no increased work of breathing Neuro: DTR diminished throughout UE and LE Concern for Mag toxicity with accurate exam showing decreased to absent DTR's. Mag level stat. No signs/sx of respiratory depression at this time. Continue mag pending result.
--- NOTE | 2017-09-13 08:26 | PDOC.LDPN ---
Labor & Delivery Progress Note - Subjective Subjective: comfortable - Objective Vital signs reviewed and normal: yes General: NAD FHT: category 1 [place] contractions every: no contractions - Assessment (1) History of delivery Code(s): Z87.51 - PERSONAL HISTORY OF PRE-TERM LABOR Current Visit: No Status: Acute (2) labor in third trimester Code(s): O60.03 - LABOR WITHOUT DELIVERY, THIRD TRIMESTER Current Visit: No Status: Acute Qualifiers: labor delivery status: without delivery Qualified Code(s): O60.03 - labor without delivery, third trimester Comment: Patient 30.4 wks by 7.4 wk sono admitted for labor. Appears to have occured over the weekend sponateously and has since stopped except for the occasional contractions. Patient has recieved 1st dose BMZ. Has not required tocolytics or mag for neuroprotection. Infection workup negative except for candidia. SVE unchanged from 09/10 -- /-3. Fetus is cephalic. EFW at 26%. MARILU borderline at 6 cm. One individual pocket of 3.7 cm. Will need to discuss case with STRINGED INSTRUMENT ASSEMBLER for monitoring in hospital due to risk of PTD prior to 32 wks with risk. Would consider watching through the weekend. Will need repeat sono with BPP. (3) GBS screening not performed Code(s): [id number] - Current Visit: No Status: Suspected Comment: GBS unknown, received prophylaxis with PCNG. -: # Threatened PTL - history or delivery at 30wk2d - no contractions this AM after fluids yesterday - s/p betamethasone x2 09/11 - on mag for neuroprotection, plan to continue to 24 hours then monitor for 6 hours after - on indomethacin - PCN for GBS - BPP 08/31, off for breathing motions noted - recheck cervical exam this AM # Low MARILU - Sterile spec shows no pooling - MARILU 4.7 # Chlamydia - s/p azithro # Candidiasis - clotrimazole # Insufficient PNC - neg 1 hr GTT - 3T normal, mild anemia # Anemia of preg - start iron # Cannabis abuse - + on UDS 09/10, states she stopped
[2017-09-13] MEDS: Prenatal Vitamin 1 TAB PO SCH (11:42)
[2017-09-13] MEDS: Ferrous Sulfate 325 MG TAB PO SCH (11:42)
--- NOTE | 2017-09-13 12:00 | PDOC.EVN ---
Event Note - Event Note Event Note: Patient is awake, she is complain of contractions every 5 minutes or so, not picked up on monitor VSS PE: General: AOX3, awake Lungs: CTAB, no increased work of breathing Neuro: persistently DTR diminished throughout UE and LE Mag level this AM at 0550 1.7 Will continue mag through 1345 CM arranged for patient to get connected with Rent assistance program, patient is much relieved
--- NOTE | 2017-09-13 17:02 | ULT ---
ULTRASOUND BIOPHYSICAL PROFILE: 09/13/17 HISTORY: Followup biophysical profile score from yesterday. COMPARISON: Biophysical profile score prior day. FINDINGS: Real time stevens scale and color and spectral analysis of the gravid uterus was performed. The biophysi raul profile score is 8/8. Amniotic fluid index is 8.0. heart 157 beats per minute. position is vertex. Placenta is posterior. Results were given by the technologist to the nurse. IMPRESSION: Biophysical profile score of 8/8. POS: [facility]
[2017-09-13] MEDS ORDERED: Lactated Ringer's 1,000 ML IV SCH (18:15)
[2017-09-13] MEDS: Docusate 100 MG CAP PO SCH (18:32)
[2017-09-14] MEDS: Docusate 100 MG CAP PO SCH ×2 (05:40→11:28)
[2017-09-14] MEDS: Ferrous Sulfate 325 MG TAB PO SCH ×3 (05:41→18:24)
--- NOTE | 2017-09-14 07:53 | PDOC.EVN ---
Event Note - Event Note Event Note: Per visit with Dr. Olivarez, pt will stay overnight with intermittent FHT monitoring (q shift & prn ctx). Currently FHTs Cat I. mat VSS. Off Mag & PCN. BPP 10/31 with MARILU 8.0. Will develop POC tomorrow pending overnight events.
--- NOTE | 2017-09-14 08:38 | PDOC.LDPN ---
Labor & Delivery Progress Note - Subjective Subjective: comfortable, no concerns, other (Patient denies any contractions overnight, no loss of fluids, no pain, tolerating PO intake) - Objective Vital signs reviewed and normal: yes General: NAD Uterine fundus: non tender - Assessment (1) History of delivery Code(s): Z87.51 - PERSONAL HISTORY OF PRE-TERM LABOR Current Visit: No Status: Acute (2) labor in third trimester Code(s): O60.03 - LABOR WITHOUT DELIVERY, THIRD TRIMESTER Current Visit: No Status: Acute Qualifiers: labor delivery status: without delivery Qualified Code(s): O60.03 - labor without delivery, third trimester (3) GBS screening not performed Code(s): [id number] - Current Visit: No Status: Suspected Comment: GBS unknown, received prophylaxis with PCNG. -: # Threatened PTL - currently at 31.0 GA - repeat BPP yesterday afternoon shows 10/31 - history of delivery at 30wk2d - reports no contractions overnight - s/p betamethasone x2 09/11 - received 24 hours of magnesium, d/c'd 09/13 1600 # Low MARILU - Sterile spec shows no pooling - MARILU 4.7-> 8.8 # Chlamydia - s/p azithro # Candidiasis - clotrimazole # Insufficient PNC - neg 1 hr GTT - 3T normal, mild anemia # Anemia of preg - start iron # Cannabis abuse - + on UDS 09/10, states she stopped # Social situation - Rent assitance program is processing her case
[2017-09-14] MEDS: Prenatal Vitamin 1 TAB PO SCH (11:28)
[2017-09-14] MEDS: Clotrimazole 2% 3 Day Vag Cr 22.2 GM TUBE VAG SCH (18:24)
--- NOTE | 2017-09-15 06:10 | PDOC.EVN ---
Event Note - Event Note Event Note: Reviewed the recently done NST. Baseline 145 with moderate variability. No decels. There were three 10x10 accels in the appx 40 minute NST. I reviewed previous NSTs and she had slightly larger accells in the past, but not on every NST. No apparent contractions to me, but patient was in the shower when I was called to review so wasnt available to describe her symptoms. Will get another NST in about 1 hour to re assess.
--- NOTE | 2017-09-15 09:29 | PDOC.LDPN ---
Addendum entered and electronically signed by Lashawn Frank DO 09/15/17 09:33: NST reviewed with Dr. Olivarez- multiple 10x10 accelerations within 40 min NST with moderate variability. No decelerations noted. Reactive for <32wk IUP. Original Note: Labor & Delivery Progress Note - Subjective Subjective: comfortable, no concerns - Objective Vital signs reviewed and normal: yes General: NAD, resting Uterine fundus: non tender SVE: deferred FHT: category 1, variability present [place] contractions every: none - Assessment (1) Low amniotic fluid Code(s): O41.00X0 - OLIGOHYDRAMNIOS, UNSP TRIMESTER, NOT APPLICABLE OR UNSP Current Visit: Yes Status: Acute QualifierTitle: Fetus number: single or unspecified fetus Trimester: third trimester Qualified Code(s): O41.03X0 - Oligohydramnios, third trimester , not applicable or unspecified (2) labor in third trimester Code(s): O60.03 - LABOR WITHOUT DELIVERY, THIRD TRIMESTER Current Visit: No Status: Acute QualifierTitle: labor delivery status: without delivery Qualified Code(s): O60.03 - labor without delivery, third trimester (3) Chlamydia infection affecting in third trimester Code(s): O98.813 - OTH MATERNAL INFEC/PARASTC DISEASES COMP PREG, THIRD TRI; A74.9 - CHLAMYDIAL INFECTION, UNSPECIFIED Current Visit: Yes Status: Resolved Comment: s/p treatment (4) Marijuana use Code(s): F12.90 - CANNABIS USE, UNSPECIFIED, UNCOMPLICATED Current Visit: No Status: Chronic Plan: continue plan of care -: 1) PTL in 3rd trimester- s/p betamethasone x 2. stopped PTL with tocolysis and 24hr Mag infusion for neuroprotection. s/p GBS ppx, however cx has resulted neg at this time. treated chlamydia and candidal infections which may have been contributing. denies ctx today. NST reactive for <32wk IUP. Continue q shift NST and monitor closely. 2) Low MARILU- no overt ROM. improved with IVF with new MARILU 8.0 3) Chlamydia- s/p azithro 4) Candidiasis- s/p clotrimazole 5) Insufficient PNC 6) Anemia of preg- ferrous sulfate 7) Cannabis abuse w/ + on UDS 6/18, states she has abstained 8) Social situation- BV care coordination & case mgmt on board Dispo- anticipate stay through the weekend for monitoring. encourage po hydration. <Lashawn Frank - Last Filed: 09/15/17 09:28> Attending Addendum - Attending Addendum Date/Time: 09/15/17 0930 I personally evaluated the patient and discussed the management with Dr. Frank I agree with the History, Examination, Assessment and Plan documented above with any addition or exceptions noted below. 22 yo female at 31.0 wks by 7.4 wk sono admitted for labor now with advanced cervical dilation s/p BMZ and mag. Patient without evidence of progressive labor now over the past several days. + FM. Reassuring testing daily. Patient with multiple social issues and concerns/stress outside the hospital. Patient understands risk for labor out of hospital. Patient is welling to stay as inpatient as long as she possibly can but child development consultant is starting be become an issue. Resources have been sought. Oligo has now resolved with IVF hydration. Umbilical artery dopplers are reassuring. Will repeat BPP tomorrow with dopplers. Continue current plan. NST q shift and prn. Repeat BPP in AM. Possible d/c closure to 32 wks if not at 32 wks. KeoMD <Jacquie Olivarez - Last Filed: 09/17/17 09:35>
[2017-09-15] MEDS: Prenatal Vitamin 1 TAB PO SCH (09:44)
[2017-09-15] MEDS: Docusate 100 MG CAP PO SCH ×2 (09:44→20:38)
[2017-09-15] MEDS: Ferrous Sulfate 325 MG TAB PO SCH ×2 (09:44→18:30)
[2017-09-16] MEDS ORDERED: Calcium Carbonate 500 MG ChewTAB PO PRN (05:28)
--- NOTE | 2017-09-16 09:22 | PDOC.LDPN ---
Labor & Delivery Progress Note - Subjective Subjective: comfortable (no contractions overnight) - Objective Vital signs reviewed and normal: yes General: NAD, resting Uterine fundus: non tender SVE: deferred FHT: category 1, variability present [place] contractions every: none - Assessment (1) Low amniotic fluid Code(s): O41.00X0 - OLIGOHYDRAMNIOS, UNSP TRIMESTER, NOT APPLICABLE OR UNSP Current Visit: Yes Status: Acute QualifierTitle: Fetus number: single or unspecified fetus Trimester: third trimester Qualified Code(s): O41.03X0 - Oligohydramnios, third trimester , not applicable or unspecified (2) labor in third trimester Code(s): O60.03 - LABOR WITHOUT DELIVERY, THIRD TRIMESTER Current Visit: No Status: Acute QualifierTitle: labor delivery status: without delivery Qualified Code(s): O60.03 - labor without delivery, third trimester (3) Chlamydia infection affecting in third trimester Code(s): O98.813 - OTH MATERNAL INFEC/PARASTC DISEASES COMP PREG, THIRD TRI; A74.9 - CHLAMYDIAL INFECTION, UNSPECIFIED Current Visit: Yes Status: Resolved Comment: s/p treatment (4) Marijuana use Code(s): F12.90 - CANNABIS USE, UNSPECIFIED, UNCOMPLICATED Current Visit: No Status: Chronic Plan: continue plan of care -: 1) PTL in 3rd trimester- s/p betamethasone x 2 & tocolysis with indocin + 24hr Mag infusion for neuroprotection with cessation of PTL. treated chlamydia and candidal infections which may have been contributing to PTL. denies ctx today. NST reactive for <32wk IUP. 2) Low MARILU- no overt ROM. improved with IVF with new MARILU 8.0 3) Chlamydia- s/p azithro 4) Candidiasis- s/p clotrimazole 5) Insufficient PNC 6) Anemia of preg- ferrous sulfate 7) Cannabis abuse w/ + on UDS 09/10, states she has abstained 8) Social situation- BV care coordination & case mgmt on board Dispo- anticipate stay through the weekend for monitoring. encourage po hydration. <Lashawn Frank - Last Filed: 09/16/17 09:24> Attending Addendum - Attending Addendum Date/Time: 09/16/17 0936 I personally evaluated the patient and discussed the management with Dr. Frank I agree with the History, Examination, Assessment and Plan documented above with any addition or exceptions noted below. 22 yo female at 31.1 wks by 7.4 wk sono admitted for labor now with advanced cervical dilation. s/p BMZ. Doing well today. No complaints. No evidence of progression of labor. Infections now treated and patient remains asymptomatic. BPP today. NST reactive and reassuring. Will continue to monitor inpatient. Will continue to work on social issues as much as possible but will likely impact inpatient stay. Jenny <Jacquie Olivarez - Last Filed: 09/17/17 09:38>
[2017-09-16] MEDS: Docusate 100 MG CAP PO SCH (09:27)
[2017-09-16] MEDS: Ferrous Sulfate 325 MG TAB PO SCH ×2 (09:27→17:43)
[2017-09-16] MEDS: Prenatal Vitamin 1 TAB PO SCH (09:27)
[2017-09-16] MEDS ORDERED: Famotidine 20 MG TAB PO SCH ×2 (12:00→21:00)
--- NOTE | 2017-09-16 15:16 | ULT ---
LIMITED OB ULTRASOUND UMBILICAL ARTERY ULTRASOUND BIOPHYSICAL PROFILE: HISTORY: labor. History of oligohydramnios. COMPARISON: 09/13/17. TECHNIQUE: Multiplanar, stevens scale, and color Doppler images were obtained in a transabdominal ultrasound. FINDINGS: There is a single live intrauterine with heart rate of 147 b.p.m. MARILU is 7.7 cm, which is low normal. Placenta is anterior in location without evidence of placenta previa. A biophysical profile was performed. The fetus scored 8 of 8, which is normal. Interrogation of the umbilical artery was performed. There is continuous diastolic flow. Peak systo lic velocity in the umbilical artery is 101 cm/s. End-diastolic velocity is 35. The systolic to cherri stolic ratio is 2.9. IMPRESSION: 1. Live intrauterine . 2. Normal biophysical profile. 3. Unremarkable umbilical artery ultrasound. POS: [facility]
[2017-09-16] MEDS: Acetaminophen 500 MG TAB PO PRN (20:49)
--- NOTE | 2017-09-17 06:22 | PDOC.LDPN ---
Labor & Delivery Progress Note - Subjective Subjective: comfortable, no concerns (She reports no Contractions overnight, eating/drinking well, happy with social f/u) - Objective Vital signs reviewed and normal: yes General: NAD Uterine fundus: non tender - Assessment (1) History of delivery Code(s): Z87.51 - PERSONAL HISTORY OF PRE-TERM LABOR Current Visit: No Status: Acute (2) labor in third trimester Code(s): O60.03 - LABOR WITHOUT DELIVERY, THIRD TRIMESTER Current Visit: No Status: Acute QualifierTitle: labor delivery status: without delivery Qualified Code(s): O60.03 - labor without delivery, third trimester (3) GBS screening not performed Code(s): [id number] - Current Visit: No Status: Suspected Comment: GBS unknown, received prophylaxis with PCNG. Plan: continue plan of care -: # PTL in 3rd trimester- - 31.3 today - s/p betamethasone x 2 - tocolysis with indocin - 24hr Mag infusion for neuroprotection with cessation of PTL. - treated chlamydia and candidal infections which may have been contributing to PTL. - Continue NST qShift # Low MARILU - no overt ROM. improved with IVF with new MARILU 8.0 # Chlamydia- s/p azithro # Candidiasis- s/p clotrimazole # Insufficient PNC # Anemia of preg- ferrous sulfate # Cannabis abuse w/ + on UDS 09/10, states she has abstained # Social situation - BV care coordination & case mgmt on board - patient is satisfied with current social situation Dispo- anticipate d/c tomorrow if no cxns <Eddy Gaston - Last Filed: 09/17/17 09:17> Attending Addendum - Attending Addendum Date/Time: 09/17/17 1053 I personally evaluated the patient and discussed the management with Dr. Frank and Dr. Gaston I agree with the History, Examination, Assessment and Plan documented above with any addition or exceptions noted below. 22 yo female at 31.3 wks by 7.4 wk sono admitted for labor now with advanced cervical dilation s/p BMZ. Remains stable. No contractions overnight. +FM. NST reactive. MARILU stable. Still with pending social issues. Possible d/c tomorrow if remains stable with close follow up weekly. No s/s of infection. Drug use cessation addressed. Jenny <Jacquie Olivarez - Last Filed: 09/17/17 10:55>
[2017-09-17] MEDS: Docusate 100 MG CAP PO SCH ×3 (07:32→09:10)
[2017-09-17] MEDS: Ferrous Sulfate 325 MG TAB PO SCH ×2 (07:34→09:10)
[2017-09-17] MEDS: Prenatal Vitamin 1 TAB PO SCH (09:04)
[2017-09-17] MEDS ORDERED: Sodium Chloride 0.9% 10 ML ONE (18:18)
[2017-09-17] MEDS: Acetaminophen 500 MG TAB PO PRN (20:11)
[2017-09-18] MEDS: Pen G 2.5 MILL.UNITS/50 ML BAG IVPB SCH (02:33)
[2017-09-18] MEDS: Lactated Ringer's 1,000 ML IV SCH (02:33)
--- NOTE | 2017-09-18 08:10 | PDOC.LDPN ---
Labor & Delivery Progress Note - Subjective Subjective: comfortable, no concerns - Objective Vital signs reviewed and normal: yes General: NAD, resting Uterine fundus: non tender SVE: deferred [place] contractions every: pending NST - Assessment (1) labor in third trimester Code(s): O60.03 - LABOR WITHOUT DELIVERY, THIRD TRIMESTER Status: Acute QualifierTitle: labor delivery status: without delivery Qualified Code(s): O60.03 - labor without delivery, third trimester (2) Marijuana use Code(s): F12.90 - CANNABIS USE, UNSPECIFIED, UNCOMPLICATED Status: Chronic (3) Low amniotic fluid Code(s): O41.00X0 - OLIGOHYDRAMNIOS, UNSP TRIMESTER, NOT APPLICABLE OR UNSP Status: Resolved QualifierTitle: Fetus number: single or unspecified fetus Trimester: third trimester Qualified Code(s): O41.03X0 - Oligohydramnios, third trimester , not applicable or unspecified (4) Chlamydia infection affecting in third trimester Code(s): O98.813 - OTH MATERNAL INFEC/PARASTC DISEASES COMP PREG, THIRD TRI; A74.9 - CHLAMYDIAL INFECTION, UNSPECIFIED Status: Resolved Comment: s/p treatment (5) Candidiasis of vagina during Code(s): O98.819 - OTH MATERNAL INFEC/PARASTC DISEASES COMP PREG, UNSP TRI; B37.3 - CANDIDIASIS OF VULVA AND VAGINA Status: Resolved Plan: continue plan of care -: 22yo @ 31.4wk by 7.4wk US here for- PTL in 3rd trimester- s/p BMZ x 2, tocolysis with indocin, and mag for neuroprotection with cessation of ctx. - s/p tx of chlamydia and candidal infections - pending AM NST and likely d/c home today with strict labor precautions/RT hospital precautions <Lashawn Frank - Last Filed: 09/18/17 08:10> Attending Addendum - Attending Addendum Date/Time: 09/18/17 3803 I personally evaluated the patient and discussed the management with Dr. Frank I agree with the History, Examination, Assessment and Plan documented above with any addition or exceptions noted below. 22 yo female at 31.4 wks by 7.4 wk sono admitted for labor s/p BMZ on (6/18 - 09/11). Doing well today. +FM. No contractions. 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 Patient SVE unchanged today. Infections treated. Will need REENA in 2 to 3 wks. Will need repeat GBS swab at 35 wks if patient makes it that far in . Has follow up appointment at [facility] on Sunday morning. Strict precautions discussed at length on several occasions. UDS repeated this hospital stay. Will need repeat in clinic and upon arrival to hospital at time of delivery. CM has been notified patient aware if positive will have CPS involved. Patient expressed known risk of out of hospital delivery. Ok to d/c to home today. NST reactive. Will need repeat BPP (hx of oligo this hospitalization) and NST on Sunday. Jenny <Jacquie Olivarez - Last Filed: 09/18/17 14:57>
[2017-09-18 08:14] VITALS: BP 86/51; TEMP 97.9
[2017-09-18] MEDS: Ferrous Sulfate 325 MG TAB PO SCH (09:04)
[2017-09-18] MEDS: Prenatal Vitamin 1 TAB PO SCH (09:04)
[2017-09-18] MEDS: Docusate 100 MG CAP PO SCH (09:04)
[2017-09-18 12:13] LABS: Amphetamine Not Detected (NotDetected); Barbiturates Screen Not Detected (NotDetected); Benzodiazepine Screen Not Detected (NotDetected); Cocaine Metabolite Screen Not Detected (NotDetected); Medtox Control Line Valid? VALID (VALID); Medtox Reader # READER 1; Methadone Not Detected (NotDetected); Methamphetamine Not Detected (NotDetected); Opiate Screen Not Detected (NotDetected); Oxycodone Screen Not Detected (NotDetected); Phencyclidine (PCP) Not Detected (NotDetected); THC/Cannabinoid Screen Not Detected (NotDetected); Tricyclic Screen Not Detected (NotDetected)
--- NOTE | 2017-09-18 17:07 | PDOC.EVN ---
Event Note - Event Note Event Note: Reviewed NST which was reactive. It did show occasional small ctx, which pt endorsed as mild. Dr. Olivarez then checked pt's cervix which was again 3.5/60/-3. no head engagement at this time. Made pt an appt for outpt f/u at [facility] on 09/21 at 9:30 am. Again discussed strict labor precautions & return to hospital precautions. <Lashawn Frank - Last Filed: 09/18/17 17:05> Attending Addendum - Attending Addendum Date/Time: 09/19/17 1241 I personally evaluated the patient and discussed the management with Dr. Frank I agree with the History, Examination, Assessment and Plan documented above with any addition or exceptions noted below. No jackson contractions noted on toco. Patient voiced some feelings of cramping. Cervical exam completely unchanged. Multiple social issues. Patient understands risk. Will discharge later today with close follow up. ABrayMD <Jacquie Olivarez - Last Filed: 09/19/17 12:46>
--- NOTE | 2017-09-19 08:27 | DIS-2 ---
This is in regard to both her hospital stay on 09/10/2017 through 09/11/2018 as well as her hospital stay from 09/12/2017 through 09/18/2017. DISCHARGING RESIDENT: Lashawn Frank DO. DISCHARGE ATTENDING: Jacquie Olivarez M.D. CONSULTS: COOK'S ASSISTANT, Jonathan Palacios M.D. HOSPITAL COURSE: The patient arrived to [facility] on at 30 weeks and 3 days by LMP, consistent with a 7 week 4 day ultrasound after complaints of contractions over the weekend. She had a cervical exam in the outpatient setting and was noted to be 3 cm dilated and was sent to [facility] for evaluation for labor. Her history was significant for prior vaginal delivery at 30 weeks and 3 days with her last , with refusal of progesterone IM therapy throughout this . Upon arrival to the hospital, patient was noted to be 3 cm dilated, 50% effaced, and at -3 station and patient was admitted for workup of labor. Translabial US showed a CL of 2.2cm. She was given betamethasone on both 09/10/2017 as well as 09/11/2017 for a total of 2 doses and then was discharged home the night of 09/11/2017 with follow up at [facility] the following morning. The morning of 09/12/2017, patient was seen at [facility] and found to be painfully brenden every 5 minutes while on the NST, and therefore was sent to [facility] for evaluation. Upon arrival, the patient was noted to have a biophysical profile was 6/8 for lack of breathing and MARILU was 4.7, but single deepest vertical pocket was noted to be 2.1 cm without any history of leakage of fluid with a negative sterile speculum exam. The patient was started on magnesium sulfate for neuro protection was given a 4 g loading dose followed by 1 g per hour and was started on penicillin for GBS prophylaxis. Because her single deepest vertical pocket was greater than 2 cm, a single dose Indocin was given as her EGA with under 32 weeks for tocolysis. This was all performed in conjunction with our antepartum consult [employer] provider. The patient was found to have positive Zoya and positive Chlamydia infections after her studies returned from her initial hospital stay, which were both treated upon her followup hospital stay with IV azithromycin, 24 hours of GBS prophylaxis with penicillin, and 3 days of intravaginal fluconazole. With tocolysis, the patient's contractions were noted to stop within 24 hrs and SVE performed by the same provider was 3.5 cm, 60% effaced, and -3 station. Throughout the following 5 days of hospital stay, the patient had daily BPPs or NSTs all of which were reassuring and reactive. The patient noted to have no further painful contractions and upon discharge, cervix was reexamined and found to be unchanged and without head engagement. Strict return to ER precautions were given to the patient in case of return of contractions. Additionally, throughout her hospital stay, the patient had a case management consult to assist with other addiction social worker given stressors, which appeared to be helpful. DISPOSITION: Guarded. DISCHARGE INSTRUCTIONS: 1. Location: Home. 2. Activity: Pelvic rest. 3. Diet: Regular. 4. Follow up with Clinic on 09/21/2018 at 9:30 a.m. within 3 days of discharge. 5. Return to ER precautions given in case of return of painful contractions. BERTO
== END 2017-09-18 11:50 | disposition home or self-care (01) | DRG 778 ==
LOC: L&D/OP 12:21 → L&D 17:44 → 3SE 09-14 18:20
PROVIDERS: ADMIT Student in an Organized Health Care Education/Training Program; ATTEND Student in an Organized Health Care Education/Training Program
DX: O60.03 Preterm labor without delivery, third trimester (principal); O99.323 Drug use complicating pregnancy, third trimester; O41.03X0 Oligohydramnios, third trimester, not applicable or unspecified; O98.813 Other maternal infectious and parasitic diseases complicating pregnancy, third trimester; F12.90 Cannabis use, unspecified, uncomplicated; B37.3 Candidiasis of vulva and vagina; O99.013 Anemia complicating pregnancy, third trimester; D64.9 Anemia, unspecified; Z3A.30 30 weeks gestation of pregnancy
CPT/HCPCS: 36415; 59025; 76815; 76819; 80306; 81003; 82947; 83735; 85025; 85027; 86780; 86850; 86900; 86901; 87081; 87086; 87340; 87389; 87480; 87491; 87510; 87591; 87660; 96372; 99285; A4216; G0378; J0456; J0702; J2405; J2540; J3475; J7050

== ENCOUNTER 2017-10-28 20:42 | Inpatient (IN) | payer OTHER ==
[2017-10-28 21:29] VITALS: BMI 28.3
[2017-10-28 21:43] LABS: Amnisure Test RUPTURE DETECTED (No Rupture)
[2017-10-28 21:44] LABS: Amnisure Internal Control QC ACCEPTABLE (ACCEPTABLE)
--- NOTE | 2017-10-28 22:02 | PDOC.LDHP ---
Labor and Delivery H&P Chief complaint: loss of fluid HPI: Patient is a 22 yo at 37.2wks by 7wk4d US presenting today with vaginal bleeding and leakage. She noted vaginal bleeding beginning last night in small amounts on the toilet paper and "mucusy" in character. She began having clear/ cloudy leakage a couple hours ago and has been enough to fill her hand. Patient has felt baby move throughout the day. She has not had any CTX. FHT: baseline 160, mod variability, and one acceleration noted. The patient was admitted at 30wks for pre-term labor and was given Mg at that time. She was found to be chlamydia and Zoya positive. She is GBS (+). Patient denies headache, fever, SOB, chest pain, or burning with urination at this time. Current gestational age (weeks): 37 Dating criteria: first trimester ultrasound Grav: 2 Para: 1 Current complications: none Abnormal US findings: No - Physical Exam Vital signs reviewed and normal: yes General: NAD, resting Heart: RRR Lungs: nonlabored breathing Abdomen: NTTP Extremeties: trace edema FHT: category 1, variability present - Vaginal Exam cm dilated: 5 Effacement: 75% Station: -2 - OB Labs Blood type: A RH: positive Antibody Screen: negative HIV: negative RPR: negative HEPSAg: negative 1 hour GCT: negative GBS: positive Rubella: immune - Assessment L&D Assessment: term rupture in membranes - Plan Plan: admit to L&D, labor augmentation if indicated, GBS antibiotic prophylaxis , informed consent obtained -: This is a 22 yo at 37.2wks by a 7w4d US, admitted for term rupture of membranes with no ctx. GBS and chlamydia +. 1. Term Rupture of membranes - Will admit to L&D - Will begin Pitocin due to pt not having ctx - Current check: 4-5/80%/-2; Will re-check in 4 hours for labor progression - Will monitor vital signs - Patient does not desire epidural at this time 2. GBS (+) - Will give Penicillin 5mill units X 1 and then 2.5mill q4 for adequate prophylaxis 3. Chlamydia (+) - Will give azithromycin X 1 for tx <Alysha Albrecht - Last Filed: 10/28/17 22:29> <Micheline Yoon - Last Filed: 10/28/17 22:51> Allergies/Adverse Reactions: Allergies Allergy/AdvReac Type Severity Reaction Status Date / Time No Known Drug Allergies Allergy Verified 09/11/17 08:33 Attending Addendum - Attending Addendum Date/Time: 10/28/17 1295 I personally evaluated the patient and discussed the management with Dr. Albrecht I agree with the History, Examination, Assessment and Plan documented above with any addition or exceptions noted below. 22 yo at 37.2wks dated by 7wk4d US presenting for SROM at 1930 today has been complicated by - labor at 30w for which she recieved BMZ x 2 doses. She has been dilated to 4cm since that time -History of delivery with her first child. She started 17 OH-P but stopped in 2nd trimester -Cannabis use during -Oligohydramnios that resolved with IV Fluid resuscitation -Chlamydia infection, recurrent -Inconsistent care 1. Term PROM -Willl start pitocin for labor augmentation -PCN for GBS prophylaxis -Cat I FHT. -/-1 on my exam -Anticipate 2. +Chlamydia -Treated in hospital but with positive REENA on repeat at 35w. She failed to show up to appointment for repeat treatment. -Will treat now with azithromycin 1gm 3. Cannabis use -Check UDS <Micheline Yoon - Last Filed: 10/28/17 22:51>
[2017-10-28] MEDS ORDERED: Ibuprofen 800 MG TAB PO PRN (22:09)
[2017-10-28] MEDS ORDERED: Lidocaine 1% (PF) 30 ML VIAL SC PRN (22:09)
[2017-10-28] MEDS ORDERED: NS w/ Oxytocin 10 units 500 ML IV SCH (22:15)
[2017-10-28] MEDS ORDERED: Penicillin G Potassium 5 MILL.UNITS in Sodium Chloride 0.9% 100 ML IVPB SCH (22:15)
[2017-10-28] MEDS ORDERED: Ondansetron HCl/PF 4 MG/2 ML Vial IVP PRN (22:17)
[2017-10-28] MEDS ORDERED: Azithromycin 250 MG TAB PO SCH ×2 (22:17→23:00)
[2017-10-28] MEDS ORDERED: Promethazine HCl 25 MG/ML VIAL IM PRN (22:17)
[2017-10-28] MEDS ORDERED: Acetaminophen 500 MG TAB PO PRN (22:17)
[2017-10-28 22:38] LABS: Hemoglobin 8.6 g/dL (12.0-16.0); Mean Corpuscular Volume 76.5 fL (78.0-98.0); Mean Platelet Volume 8.4 fL (7.4-10.4); Platelet Count 239 thou/uL (130-400); RBC Distribution Width 14.5 % (11.5-14.5); Red Blood Cell (RBC) Count 3.31 mill/uL (4.20-5.40)
[2017-10-28] MEDS: Lactated Ringer's 1,000 ML IV SCH (22:58)
[2017-10-28] MEDS ORDERED: Azithromycin 1,000 MG in Sodium Chloride 0.9% 500 ML IVPB SCH (23:00)
[2017-10-29 00:16] LABS: Amphetamine Not Detected (NotDetected); Barbiturates Screen Not Detected (NotDetected); Benzodiazepine Screen Not Detected (NotDetected); Cocaine Metabolite Screen Not Detected (NotDetected); Medtox Reader # READER 4; Methadone Not Detected (NotDetected); Methamphetamine Not Detected (NotDetected); Opiate Screen Not Detected (NotDetected); Oxycodone Screen Not Detected (NotDetected); Phencyclidine (PCP) Not Detected (NotDetected); THC/Cannabinoid Screen Not Detected (NotDetected); Tricyclic Screen Not Detected (NotDetected)
[2017-10-29 00:17] LABS: Medtox Control Line Valid? VALID (VALID)
[2017-10-29] MEDS: Penicillin G 2.5 MILL.units 2.5 MILL.UNITS in Premix Bag 1 BAG IVPB SCH ×2 (02:14→08:31)
[2017-10-29] MEDS ORDERED: Butorphanol Tartrate 1 MG/ML VIAL ONE (02:29)
[2017-10-29] MEDS ORDERED: Butorphanol Tartrate 1 MG/ML VIAL SLOW IVP PRN (02:31)
--- NOTE | 2017-10-29 03:51 | PDOC.LDPN ---
Labor & Delivery Progress Note - Subjective Subjective: painful contractions, vaginal pressure - Objective Vital signs reviewed and normal: yes General: breathing through contractions Uterine fundus: non tender Dilation: 7 Effacement: 90% Station: 1+ FHT: category 1, variability present [place] contractions every: 2-3 min Plan: continue plan of care, pitocin for augmentation -: Patient is a 22 yo at 37.2wks by 7w4d US for term rupture of membranes. Last check at 214 was /+1. Patient is GBS, chlamydia, and kali +. 1. Term rupture of Membranes - Continue pitocin for augmentation of labor - Next check at 5 - Will give stadol for pain - Continue fluids - Vaginal delivery expected 2. GBS + - Pen G X 2 doses given 3. Chlamydia + - Azithromycin given <Alysha Albrecht - Last Filed: 10/29/17 03:48> Attending Addendum - Attending Addendum Date/Time: 10/29/17 4567 I personally evaluated the patient and discussed the management with Dr. Albrecht. I agree with the History, Examination, Assessment and Plan documented above with any addition or exceptions noted below. <Micheline Yoon - Last Filed: 10/29/17 04:27>
--- NOTE | 2017-10-29 03:51 | PDOC.LDPN ---
Labor & Delivery Progress Note - Subjective Subjective: painful contractions - Objective Vital signs reviewed and normal: yes General: breathing through contractions SVE: Difficult exam due to pt discomfort Dilation: Approx 8cm Effacement: 100% Station: 1+ FHT: category 1 [place] contractions every: 2 min Other exam findings: moderate amount of blood Plan: continue plan of care (Making cervical change on pitocin of 6. Hemant FHT. s /p 2 doses of PCN for GBS + status. Anticipate vaginal delivery. Dr. Olivarez Notified.)
[2017-10-29] MEDS ORDERED: Fentanyl 100 MCG/2 ML VIAL ONE (04:08)
[2017-10-29] MEDS ORDERED: Fentanyl 100 MCG/2 ML VIAL SLOW IVP SCH (04:15)
--- NOTE | 2017-10-29 04:34 | PDOC.OPDEL ---
OB Operative/Delivery Note Delivery Dr/Surgeon: Dr. Olivarez, Dr. Yoon, Dr. Albrecht Pre-Delivery Diagnosis: ruptured membrane Procedure/Post Delivery Dx: spontaneous vaginal delivery Weeks gestation: 37 Anesthesia: other (left pudendal) - Additional Findings/Plan Placenta delivered: spontaneous Repaired Obstetrical Laceration: none Estimated blood loss: 200 Post delivery plan: routine recovery (This is a 22 yo F [id number] @ 37.3wks who delivered a viable F at 0402. Following an uneventful antepartum course, a vigorous F was delivered over an intact perineum in the occiput- anterior position. Anterior shoulder and then remainder of the body delivered. No nuchal cord. The head was held down and mouth and nares were bulb suctioned. Cord clamped and cut and cord blood collected. Placenta delivered intact with a 3 vessel cord noted. Fundal massage was perfomred the fundas was firm. The cervix and vagina were inspected and found a small left labial and right periurethral tear. Both were hemostatic. Skin to skin initiated with mom and baby. Infant will go to nursery in good condition for routine care. APGARs were 8/9 at 1&5 min, respectively. Patient tolerated delivery well and went to post after routine care.)
[2017-10-29] MEDS: NS / Oxytocin 40 units/1000ml 1,000 ML IV PRN ×2 (04:37→06:21)
[2017-10-29] MEDS ORDERED: Butorphanol Tartrate 1 MG/ML VIAL SLOW IVP SCH (05:00)
[2017-10-29] MEDS ORDERED: Ondansetron HCl/PF 4 MG/2 ML Vial IVP PRN (07:17)
[2017-10-29] MEDS ORDERED: NS / Oxytocin 40 units/1000ml 1,000 ML IV SCH (07:17)
[2017-10-29] MEDS ORDERED: Preparation H Ointment 28 GM TUBE PR PRN (07:17)
[2017-10-29] MEDS ORDERED: Milk Of Magnesia 30 ML UDCUP PO PRN (07:17)
[2017-10-29] MEDS ORDERED: Bisacodyl 10 MG SUPP PR PRN (07:17)
[2017-10-29] MEDS ORDERED: Promethazine HCl 25 MG/ML VIAL IM PRN (07:17)
[2017-10-29] MEDS ORDERED: Benzocaine/Menthol 20-0.5% 60 ML CAN TOP PRN (07:17)
[2017-10-29] MEDS: Ferrous Sulfate 325 MG TAB PO SCH ×2 (08:29→18:33)
[2017-10-29] MEDS: Docusate Calcium (SURFAK) 240 MG CAP PO SCH ×2 (08:30→21:12)
[2017-10-29] MEDS: Prenatal Vitamin 1 TAB PO SCH ×2 (08:30→13:34)
[2017-10-29] MEDS: Lactated Ringer's 1,000 ML IV SCH (08:31)
[2017-10-29] MEDS ORDERED: Azithromycin 100 MG/5 ML Oral Suspension PO SCH (09:00)
[2017-10-29] MEDS: Ibuprofen 800 MG TAB PO SCH ×2 (13:33→21:12)
[2017-10-29 14:05] LABS: HBSAg Index 0.22 S/CO (0-0.99); Hep B Surf Ag Non-Reactive S/CO (NonReactive); Syphilis Antibody Nonreactive (Nonreactive); Syphilis Antibody Index 0.02 S/CO (<1.00 Non-Reactive)
[2017-10-30] MEDS: Ibuprofen 800 MG TAB PO SCH ×4 (01:45→21:36)
[2017-10-30] MEDS: Lanolin Ointment 7 GM TUBE TOP PRN (01:54)
--- NOTE | 2017-10-30 08:03 | PDOC.PP ---
Post Progress Note Post Day #: 1 Subjective: Patient states she is feeling well. Reports no pain and says bleeding is still about the same as her period but denies seeing any blood clots. Voiding normally. Passing gas but no BM yet. Denies any N/V, chest pain, SOB or LE pain/ swelling. States baby is doing well both breast and bottle feeding. Feeds for about 20 minutes total for breast feeding. Met with environmental consultant yesterday who helped her with proper latching. Is open to trying OCPs for BC. PO intake tolerated: yes Flatus: yes Ambulation: yes Vital Signs (12 hours) Temp Pulse Resp BP 10/30/17 04:40 98.0 F 83 18 106/63 10/30/17 00:00 98.1 F 88 18 114/63 Weight Weight 74.843 kg - Physical Examination General: NAD Cardiovascular: no m/r/g, RRR Respiratory: clear to auscultation bilaterally, non-labored breathing Abdominal: + bowel sounds, lochia, no distention, appropriately TTP Fundus firm & at: umbilicus Extremities: negative homans (B) Neurological: no gross focal deficits Psychiatric: A&Ox3, normal affect Result Diagrams: 10/28/17 22:30 Additional Labs: Post Labs Blood Type A POSITIVE 10/28/17 22:30 Hep Bs Antigen Non-Reactive S/CO (NonReactive) 10/28/17 22:30 (1) Positive GBS test Code(s): B95.1 - STREPTOCOCCUS, GROUP B, CAUSING DISEASES CLASSD ELSWHR Status : Acute (2) Chlamydia infection Code(s): A74.9 - CHLAMYDIAL INFECTION, UNSPECIFIED Status: Acute - Assessment/Plan Patient is a 22 yo day #1 s/p @ 37.2 weeks. 1. day #1: - Will continue routine care. - No BM yet but patient has been taking stool softeners. Will continue with docusate PRN for constipation. - Tolerating food and liquids PO. Will continue with regular diet. - Will continue ibuprofen PRN for pain. - States breast feeding is going well. - Open to trying OCPs for contraception. 2. GBS + - received adequate prophylaxis of Pen G X 2. 3. Chlamydia + - Azithromycin given 5 hours prior to delivery. 4. Iron deficiency anemia in : - Hgb / prior to delivery. - Will continue with PNVs and PO ferrous sulfate. 5. h/o + UDS (marijuana): - Patient open about past drug use and admits to smoking marijuana to stimulate her appetite. Says she would otherwise go entire days without eating during her . However, says she stopped completely since her last + UDS as she was told CPS would be called if she tested + again. - UDS negative on admission.
[2017-10-30] MEDS: Prenatal Vitamin 1 TAB PO SCH (09:25)
[2017-10-30] MEDS: Docusate Calcium (SURFAK) 240 MG CAP PO SCH ×2 (09:25→21:36)
[2017-10-30] MEDS: Ferrous Sulfate 325 MG TAB PO SCH ×2 (09:25→17:43)
[2017-10-30] MEDS ORDERED: HYDROcodone/Acetaminophen 5/325 mg Tablet PO SCH (13:45)
--- NOTE | 2017-10-31 05:52 | PDOC.PP ---
Post Progress Note Post Day #: 2 Subjective: Patient states she is feeling well. Was not fully cooperative during interview. Was covering her eyes and not responding to all questions. States her pain is well controlled. Baby is breast feeding well. Did not answer question about bleeding. Has not had a BM yet but is passing gas. Voiding and eating and drinking well. no concerns at this time. PO intake tolerated: yes Flatus: yes Ambulation: yes Vital Signs (12 hours) Temp Pulse Resp BP 10/30/17 21:37 98.6 F 85 18 118/71 Weight Weight 74.843 kg - Physical Examination General: NAD Cardiovascular: no m/r/g, RRR Respiratory: clear to auscultation bilaterally, non-labored breathing Abdominal: + bowel sounds, lochia, no distention, appropriately TTP Extremities: negative homans (B) Neurological: no gross focal deficits Psychiatric: A&Ox3, normal affect Result Diagrams: 10/28/17 22:30 Additional Labs: Post Labs Blood Type A POSITIVE 10/28/17 22:30 Hep Bs Antigen Non-Reactive S/CO (NonReactive) 10/28/17 22:30 (1) Positive GBS test Code(s): B95.1 - STREPTOCOCCUS, GROUP B, CAUSING DISEASES CLASSD ELSWHR Status : Acute (2) Chlamydia infection Code(s): A74.9 - CHLAMYDIAL INFECTION, UNSPECIFIED Status: Acute - Assessment/Plan Patient is a 22 yo day #2 s/p @ 37.2 weeks. 1. day #2: - Will continue routine care. - No BM yet. Will continue with docusate PRN for constipation. - Tolerating food and liquids PO. Will continue with regular diet. - Will continue MARGARITA ibuprofen for pain. - States breast feeding is going well. 2. GBS + - received adequate prophylaxis of Pen G X 2. 3. Chlamydia + - Azithromycin given 5 hours prior to delivery. 4. Iron deficiency anemia in : - Hgb 8.6 prior to delivery. - Will continue with PNVs and PO ferrous sulfate. 5. h/o + UDS (marijuana): - Aware. - UDS negative on admission. Dispo: Likely can go home today since baby has been monitored for over 48 hours now.
[2017-10-31] MEDS: Ibuprofen 800 MG TAB PO SCH ×2 (06:32→08:48)
[2017-10-31] MEDS: Prenatal Vitamin 1 TAB PO SCH (08:49)
[2017-10-31] MEDS: Ferrous Sulfate 325 MG TAB PO SCH (08:49)
[2017-10-31] MEDS: Docusate Calcium (SURFAK) 240 MG CAP PO SCH (08:49)
[2017-10-31 10:03] VITALS: BP 114/74; TEMP 98.9
[2017-10-31] MEDS: Lanolin Ointment 7 GM TUBE TOP PRN (10:53)
[2017-10-31] MEDS ORDERED: Adacel (T-DAP) 0.5 ML VIAL IM ONE (12:30)
== END 2017-10-31 12:30 | disposition home or self-care (01) | DRG 774 ==
LOC: L&D/OP 20:42 → L&D 21:58 → 3SW 10-29 06:50
PROVIDERS: ADMIT Family Medicine; ATTEND Family Medicine
PROC: 3E033VJ Introduction of Other Hormone into Peripheral Vein, Percutaneous Approach (ICD-10-PCS; 2017-10-28)
PROC: 10E0XZZ Delivery of Products of Conception, External Approach (ICD-10-PCS; principal; 2017-10-29)
DX: O70.0 First degree perineal laceration during delivery (principal); O98.82 Other maternal infectious and parasitic diseases complicating childbirth; Z3A.37 37 weeks gestation of pregnancy; Z37.0 Single live birth; B95.1 Streptococcus, group B, as the cause of diseases classified elsewhere; A74.9 Chlamydial infection, unspecified; F12.90 Cannabis use, unspecified, uncomplicated; O71.82 Other specified trauma to perineum and vulva; O90.81 Anemia of the puerperium; D50.9 Iron deficiency anemia, unspecified
CPT/HCPCS: 36415; 80306; 84112; 85027; 86780; 86850; 86900; 86901; 87340; 87480; 87510; 87660; 90715; 99285; J0456; J0595; J2001; J2540; J3010; J7050

== ENCOUNTER 2017-11-26 10:57 | Emergency (ER) | payer OTHER ==
[2017-11-26] MEDS ORDERED: Dexamethasone 10 MG/ML VIAL ONE (11:17)
== END 2017-11-26 11:25 | disposition home or self-care (01) ==
LOC: SCSER 10:57
DX: J02.9 Acute pharyngitis, unspecified (principal)
CPT/HCPCS: 99283; J1100

== ENCOUNTER 2017-12-01 16:11 | Emergency (ER) | payer OTHER | END 2017-12-01 16:39 | disposition home or self-care (01) | LOC: SCSER 16:11 | DX: O90.89 Other complications of the puerperium, not elsewhere classified (principal); N89.8 Other specified noninflammatory disorders of vagina; O99.53 Diseases of the respiratory system complicating the puerperium; O99.345 Other mental disorders complicating the puerperium | CPT/HCPCS: 99283 ==

== ENCOUNTER 2017-12-02 16:56 | Emergency (ER) | payer OTHER ==
[2017-12-02 17:45] LABS: Bilirubin Negative (Negative); Blood, Urine Negative (Negative); Clarity CLOUDY (Clear); Glucose, Urine (Dipstick) Negative (Negative); Leukocyte Moderate (Negative); Nitrite Negative (Negative); Protein, Urine (Dipstick) Negative (Neg-Trace); Specific Gravity, Urine 1.023 (1.002-1.036)
[2017-12-02 17:46] LABS: Pregnancy Test - Urine (BHCG) Negative (Negative); Pregu Control Background? CLEAR/WHITE (CLR/WHITE); Pregu Control Bar Appear? YES (CONTROL BAR); Specific Gravity 1.023 (1.002-1.036)
[2017-12-02 17:49] LABS: Bacteria/HPF None Seen HPF (None Seen); Hyaline Casts/LPF 4-6 HYALINE CAST LPF (0-3 Hyaline); RBC/HPF 0-3 HPF (0-3); WBC/HPF 21-50 HPF (0-3)
[2017-12-03 23:28] LABS: Chlamydia by PCR Not Detected (NotDetected); GC by PCR Not Detected (NotDetected)
== END 2017-12-02 19:12 | disposition home or self-care (01) ==
LOC: ERS 16:56
DX: B37.3 Candidiasis of vulva and vagina (principal); F41.9 Anxiety disorder, unspecified; J45.909 Unspecified asthma, uncomplicated
CPT/HCPCS: 81003; 81015; 81025; 87480; 87491; 87510; 87591; 87660; 99283

== ENCOUNTER 2018-02-28 14:08 | Emergency (ER) | payer OTHER, SELFPAY ==
[2018-02-28 14:47] LABS: Bilirubin Negative (Negative); Blood, Urine Small (Negative); Clarity Cloudy (Clear); Glucose, Urine (Dipstick) Negative (Negative); Leukocyte Small (Negative); Nitrite Positive (Negative); Pregnancy Test - Urine (BHCG) Negative (Negative); Pregu Control Background? CLEAR/WHITE (CLR/WHITE); Pregu Control Bar Appear? YES (CONTROL BAR); Protein, Urine (Dipstick) Negative (Neg-Trace); Specific Gravity 1.025 (1.002-1.036); Specific Gravity, Urine 1.025 (1.005-1.030); Urobilinogen 0.2 mg/dL (0.2-1.0)
[2018-02-28 14:50] LABS: Bacteria/HPF 3+ HPF (None Seen); Squamous Epithelial 0-3 HPF (0-3)
[2018-02-28] MEDS ORDERED: Lidocaine 1% MPF 2 ML VIAL ONE (16:27)
[2018-02-28] MEDS ORDERED: cefTRIAXone\\ROCEPHIN 250 MG VIAL ONE (16:27)
[2018-03-03 05:30] LABS: Chlamydia by PCR DETECTED (NotDetected); GC by PCR Not Detected (NotDetected)
== END 2018-02-28 17:00 | disposition home or self-care (01) ==
LOC: SCSER 14:08
DX: N30.00 Acute cystitis without hematuria (principal); F41.9 Anxiety disorder, unspecified; J45.909 Unspecified asthma, uncomplicated
CPT/HCPCS: 81003; 81015; 81025; 87480; 87491; 87510; 87591; 87660; 96372; J0696

== ENCOUNTER 2018-03-04 21:39 | Emergency (ER) | payer SELFPAY ==
[2018-03-04] MEDS ORDERED: Azithromycin 250 MG TAB ONE (22:37)
== END 2018-03-04 23:19 | disposition home or self-care (01) ==
LOC: ERS 21:39
DX: A74.9 Chlamydial infection, unspecified (principal); F41.9 Anxiety disorder, unspecified; J45.909 Unspecified asthma, uncomplicated
CPT/HCPCS: 99283

== ENCOUNTER 2018-04-22 17:50 | Emergency (ER) | payer SELFPAY ==
[2018-04-22] MEDS ORDERED: Ketorolac Tromethamine 30 MG/ML VIAL ONE (18:46)
[2018-04-22 18:50] LABS: Bilirubin Negative (Negative); Blood, Urine Large (Negative); Clarity Hazy (Clear); Glucose, Urine (Dipstick) Negative (Negative); Leukocyte Small (Negative); Nitrite Positive (Negative); Protein, Urine (Dipstick) Trace mg/dL (Neg-Trace)
[2018-04-22 18:51] LABS: Mean Platelet Volume 10.1 fL (7.4-10.4); Platelet Count 243 thou/uL (130-400); RBC Distribution Width 16.6 % (11.5-14.5); Red Blood Cell (RBC) Count 4.16 mill/uL (4.20-5.40)
[2018-04-22 18:54] LABS: #Basophils 0.1 thou/uL (0.0-0.2); #Eosinphils 0.1 thou/uL (0.0-0.7); #Lymphocytes 1.4 thou/uL (1.20-3.40); #Monocytes 0.4 thou/uL (0.11-0.59); #Neutrophils 2.1 thou/uL (1.40-6.50); %Basophils 1.4 % (0.0-1.0); %Eosinophils 1.6 % (0.0-10.0); %Lymphocytes 34.3 % (21.0-51.0); %Monocytes 9.2 % (0.0-10.0); %Neutrophils 53.6 % (42.0-75.0); Hypochromia SLIGHT = 6-15 cells (100X) (0-5/hpf); MDiff Complete? YES; Platelet Morphology Comment Appears Adequate
[2018-04-22 18:59] LABS: Bacteria/HPF 3+ HPF (None Seen)
[2018-04-22 18:59] LABS: ALT (SGPT) 9 U/L (8-55); AST (SGOT) 20 U/L (5-34); Albumin 4.1 g/dL (3.5-5.0); Alkaline Phosphatase 93 U/L (40-150); Anion Gap 13 mmol/L (10-20); BUN (Urea Nitrogen) 14 mg/dL (7.0-18.7); Bilirubin, Total 0.3 mg/dL (0.2-1.2); Calc. Creatinine Clearance 0 mL/min (70-130); Carbon Dioxide 24 mmol/L (22-29); Estimated GFR-MDRD Greater than 90; Globulin 3.3 g/dL (2.4-3.5); Glucose 83 mg/dL (70-105); Lipase 35 U/L (8-78); Protein, Total 7.4 g/dL (6.0-8.3)
[2018-04-22 19:05] LABS: Chloride 109 mmol/L (98-107); Potassium 3.8 mmol/L (3.5-5.1); Sodium 142 mmol/L (136-145)
[2018-04-22 19:06] LABS: BHCG - Serum Negative (NEGATIVE); Pregs Control Background? CLEAR/WHITE (CLR/WHITE); Pregs Control Bar Appear? YES (CONTROL BAR)
[2018-04-22] MEDS ORDERED: Lidocaine 1% MPF 2 ML VIAL ONE (19:20)
[2018-04-22] MEDS ORDERED: cefTRIAXone\\ROCEPHIN 1 GM VIAL ONE (19:20)
[2018-04-23 21:52] LABS: Chlamydia by PCR Not Detected (NotDetected); GC by PCR Not Detected (NotDetected)
== END 2018-04-22 19:56 | disposition home or self-care (01) ==
LOC: SCSER 17:50
DX: N39.0 Urinary tract infection, site not specified (principal); J45.909 Unspecified asthma, uncomplicated; F41.9 Anxiety disorder, unspecified
CPT/HCPCS: 36415; 80053; 81003; 81015; 83690; 84703; 85025; 87077; 87086; 87186; 87480; 87491; 87510; 87591; 87660; 96372; J0696; J1885; J2001

== ENCOUNTER 2018-05-08 23:23 | Emergency (ER) | payer OTHER, SELFPAY | END 2018-05-09 00:26 | disposition home or self-care (01) | LOC: SCSER 23:23 | DX: N89.8 Other specified noninflammatory disorders of vagina (principal); F41.9 Anxiety disorder, unspecified; J45.909 Unspecified asthma, uncomplicated | CPT/HCPCS: 99281 ==

== ENCOUNTER 2018-08-28 00:17 | Emergency (ER) | payer MEDICAID ==
[2018-08-28 01:34] LABS: Bilirubin Negative (Negative); Blood, Urine Negative (Negative); Clarity CLEAR (Clear); Glucose, Urine (Dipstick) Negative (Negative); Leukocyte Negative (Negative); Nitrite Negative (Negative); Protein, Urine (Dipstick) Negative (Neg-Trace); Specific Gravity, Urine 1.027 (1.002-1.036)
[2018-08-28 01:40] LABS: Pregnancy Test - Urine (BHCG) Negative (Negative); Pregu Control Background? CLEAR/WHITE (CLR/WHITE); Pregu Control Bar Appear? YES (CONTROL BAR); Specific Gravity 1.027 (1.002-1.036)
== END 2018-08-28 02:12 | disposition home or self-care (01) ==
LOC: ERS 00:17
DX: L73.9 Follicular disorder, unspecified (principal); F41.9 Anxiety disorder, unspecified; J45.909 Unspecified asthma, uncomplicated
CPT/HCPCS: 81003; 81025; 87252; 99283

== ENCOUNTER 2018-10-08 13:36 | Emergency (ER) | payer SELFPAY ==
[2018-10-08] MEDS ORDERED: Fluconazole 100 MG TAB ONE (14:18)
[2018-10-08 14:21] LABS: Pregnancy Test - Urine (BHCG) Negative (Negative); Pregu Control Background? CLEAR/WHITE (CLR/WHITE); Pregu Control Bar Appear? YES (CONTROL BAR); Specific Gravity 1.015 (1.002-1.036)
[2018-10-08] MEDS ORDERED: cefTRIAXone\\ROCEPHIN 250 MG VIAL ONE (14:42)
[2018-10-08] MEDS ORDERED: Azithromycin 250 MG TAB ONE (14:42)
[2018-10-08] MEDS ORDERED: Lidocaine 1% MPF 2 ML VIAL ONE (14:43)
[2018-10-10 04:39] LABS: Chlamydia by PCR Not Detected (NotDetected); GC by PCR Not Detected (NotDetected)
== END 2018-10-08 15:10 | disposition home or self-care (01) ==
LOC: SCSER 13:36
DX: N89.8 Other specified noninflammatory disorders of vagina (principal); F41.9 Anxiety disorder, unspecified
CPT/HCPCS: 81025; 87480; 87491; 87510; 87591; 87660; 96372; 99284; J0696; J2001

== ENCOUNTER 2019-04-30 17:57 | Emergency (ER) | payer SELFPAY ==
[2019-04-30 18:20] LABS: Bacteria/HPF None Seen HPF (None Seen); Bilirubin Negative (Negative); Blood, Urine Negative (Negative); Clarity Clear (Clear); Glucose, Urine (Dipstick) Normal (Negative); Leukocyte 75 Leu/uL (Negative); Nitrite Negative (Negative); Protein, Urine (Dipstick) 20 mg/dL (Neg-Trace); RBC/HPF 0-3 HPF (0-3); Urobilinogen 3 mg/dL (Less than 2); WBC/HPF 0-3 HPF (0-3)
[2019-04-30 18:43] LABS: Pregnancy Test - Urine (BHCG) Negative (Negative); Pregu Control Background? CLEAR/WHITE (CLR/WHITE); Pregu Control Bar Appear? YES (CONTROL BAR); Specific Gravity 1.027 (1.002-1.036)
[2019-04-30] MEDS ORDERED: Fluconazole 100 MG TAB PO SCH (20:30)
[2019-04-30] MEDS ORDERED: metroNIDAZOLE 500 MG TAB PO SCH (20:30)
[2019-05-02 21:03] LABS: Chlamydia by PCR Inconclusive (NotDetected); GC by PCR Inconclusive (NotDetected)
== END 2019-04-30 20:25 | disposition home or self-care (01) ==
LOC: ERS 17:57
DX: N76.0 Acute vaginitis (principal); B96.89 Other specified bacterial agents as the cause of diseases classified elsewhere; J45.909 Unspecified asthma, uncomplicated
CPT/HCPCS: 81003; 81015; 81025; 87480; 87491; 87510; 87591; 87660; 99283

== ENCOUNTER 2019-05-05 19:01 | Emergency (ER) | payer SELFPAY ==
[~2019-05-05 19:01] MED LIST: Azithromycin 250 MG TAB ONE
== END 2019-05-05 19:21 | disposition home or self-care (01) ==
LOC: ER/OP 19:01
DX: Z02.89 Encounter for other administrative examinations (principal)

== ENCOUNTER 2019-08-06 11:11 | Emergency (ER) | payer SELFPAY ==
[2019-08-06 11:57] LABS: Bilirubin Negative (Negative); Blood, Urine Negative (Negative); Clarity Turbid (Clear); Glucose, Urine (Dipstick) Normal (Negative); Leukocyte 500 Leu/uL (Negative); Nitrite Negative (Negative); Protein, Urine (Dipstick) 30 mg/dL (Neg-Trace); Urobilinogen Normal mg/dL (Less than 2)
[2019-08-06 11:58] LABS: Bacteria/HPF 1+ HPF (None Seen)
[2019-08-06 11:59] LABS: Pregnancy Test - Urine (BHCG) POSITIVE (Negative); Pregu Control Background? CLEAR/WHITE (CLR/WHITE); Pregu Control Bar Appear? YES (CONTROL BAR); Specific Gravity 1.032 (1.002-1.036)
--- NOTE | 2019-08-06 14:36 | ULT ---
PELVIC ULTRASOUND: 08/06/19 HISTORY: female with pelvic pain. TECHNIQUE: Multiplanar stevens scale and color Doppler images were obtained in a transabdominal and transvaginal [facility] ultrasound. Spectral analysis of the Doppler waveforms and ovaries were performed. FINDINGS: The uterus is normal in size. The endometrial stripe is slightly thickened. Within the endometrial s tripe, there are two adjacent tiny anechoic cyst-like structures. These do not contain poles or yolk sacs but could represent two small gestational sacs within the uterus. Mean sac diameter is zachary roximately 0.33 cm which would estimate gestational age of 5 weeks, 0 days. Both ovaries are normal in size and appearance and demonstrate normal internal flow. A trace amount o f fluid is seen in the cul-de-sac. IMPRESSION: Possible very early twin intrauterine . Alternatively, these could represent cystic change w ithin the endometrium. POS: EAA
== END 2019-08-06 12:54 | disposition home or self-care (01) ==
LOC: ERS 11:11
DX: O23.41 Unspecified infection of urinary tract in pregnancy, first trimester (principal); O99.89 Other specified diseases and conditions complicating pregnancy, childbirth and the puerperium; R10.2 Pelvic and perineal pain; O99.511 Diseases of the respiratory system complicating pregnancy, first trimester; J45.909 Unspecified asthma, uncomplicated; Z3A.01 Less than 8 weeks gestation of pregnancy
CPT/HCPCS: 76856; 81003; 81015; 81025; 84702; 86900; 86901; 87086

== ENCOUNTER 2019-10-13 12:11 | Emergency (ER) | payer SELFPAY ==
[2019-10-13 13:15] LABS: #Eosinphils 0.1 thou/uL (0.0-0.7); #Lymphocytes 1.1 thou/uL (1.20-3.40); #Monocytes 0.2 thou/uL (0.11-0.59); #Neutrophils 2.3 thou/uL (1.40-6.50); %Basophils 0.1 % (0.0-1.0); %Eosinophils 1.7 % (0.0-10.0); %Lymphocytes 31.3 % (21.0-51.0); %Monocytes 5.2 % (0.0-10.0); %Neutrophils 61.8 % (42.0-75.0); Hemoglobin 12.3 g/dL (12.0-16.0); Mean Corpuscular HGB CONC 33.4 g/dL (32.0-36.0); Mean Corpuscular Hemoglobin 28.7 pg (27.0-31.0); Mean Platelet Volume 9.4 fL (7.4-10.4); Platelet Count 221 thou/uL (130-400); RBC Distribution Width 13.8 % (11.5-14.5); White Blood Cell (WBC) Count 3.6 thou/uL (4.8-10.8)
--- NOTE | 2019-10-13 13:41 | ULT ---
ULTRASOUND PELVIC ULTRASOUND TRANSVAGINAL DOPPLER DUPLEX: DATE: 10/13/2019 HISTORY: 24-year-old female with heavy vaginal bleeding after and D&C TECHNIQUE: Transabdominal transducer and endovaginal transducer used to visualize intrapelvic contents with stevens scale, color-flow, and spectral analysis. FINDINGS: Uterus: 7.5 x 6 x 5.5 cm. Endometrial stripe: 2.1 cm (21 mm) thick at the fundus, with heterogeneous intermediate echogenicity. Some of this could represent blood clots, but there is blood flow within this, and therefore retained products of conception cannot be completely excluded. Small amount of free fluid in the pelvic cavity posterior to the uterine fundus. Right ovary: 2.7 x 2.0 x 2.2 cm. Left ovary: 2.7 x 1.5 x 2.7 cm. Multiple bilateral ovarian follicles. Blood flow demonstrated in both ovaries by Doppler. IMPRESSION: Thickened endometrial stripe at uterine fundus with heterogeneous echotexture.
--- NOTE | 2019-10-13 16:42 | PDOC.HHP ---
Hospitalist HPI - History of Present Illness Vag bleed after Elaective AB on 08/27/19 History of Present Illness: 24 Elective AB on 08.28.19 here for on/off vag bleed. here for eval. No fevers, no active VB now, but states did not ever really "stop". Review of System: complete ROS performed and as per HPI Hospitalist ROS - Review of Systems All other systems reviewed; all pertinent +/- noted in HPI/Subj Hospitalist History - Past Medical History Cardiac: reports: no pertinent history Pulmonary: reports: asthma (well controlled, in remission for "years") [employer]ADER: reports: no pertinent history - Past Surgical History Past Surgical History: reports: Other (El D&C) - Social History Smoking Status: Never smoker - Exam General Appearance: NAD, awake alert General - other findings: BP 120/80s, pulse 80s, afebrile Gastrointestinal: soft, non-tender, non-distended Extremities: no cyanosis, no clubbing Skin: normal turgor, no lesions, no rashes Musculoskeletal: normal tone Psychiatric: normal affect, normal behavior, A&O x 3 Hospitalist Results - Labs Result Diagrams: 10/13/19 13:06 Lab results: WBC 3.6 thou/uL (4.8-10.8) L 10/13/19 13:06 Hgb 12.3 g/dL (12.0-16.0) 10/13/19 13:06 Hct 36.9 % (36.0-47.0) 10/13/19 13:06 MCV 86.0 fL (78.0-98.0) 10/13/19 13:06 Plt Count 221 thou/uL (130-400) 10/13/19 13:06 Neutrophils % 61.8 % (42.0-75.0) 10/13/19 13:06 Hospitalist H&P A/P - Problem (1) Vaginal bleeding Code(s): N93.9 - ABNORMAL UTERINE AND VAGINAL BLEEDING, UNSPECIFIED Status: Acute - Plan Plan: 6 weeks from D&C, afebrile, BHCG is 10. Exam is NONTENDER UT, no active VB per spec exam. I reviewed with her D&C vs cytotec. As not febrile and no evidence acute VB and very stable, ok for cytotec 800mcg PV. I offered RX at home or placement here, and she desires placement here. We will place prior to DC, follow up in 48 hrs with T[facility]. RH pos Sono done No evidence septic AB Exam by me and Girish Lomeli (M3). Full Q&A done RN present for exam
[2019-10-13] MEDS ORDERED: Ibuprofen 800 MG TAB ONE (16:53)
--- NOTE | 2019-10-13 16:57 | PDOC.BPN ---
- Brief Progress Note OBGYN CONSULT: ED Bed D Requested by ALFRED Duncan OCCUPATIONAL THERAPY SPECIALIST Reason: VB, possible retained POC Summary: Elective AB 6 weeks ago for twin gestation. On/Off VB since but no fever. No active VB now. My exam does not reveal evidence of infection (septic retained POC) nor active VB. I have discussed plan with the patient and Perla. Trial of cytotec PV now. Follow up with NATHAN (her physician group) in 24-48 hrs. I have seen and evaluated the patient at bedside with Girish, my M3. Patient very stable and all qwuestions ansered. I have enetered a full H&P in the EMR as "Hospitalist H&P note"
[2019-10-13] MEDS ORDERED: Misoprostol 200 MCG TAB VAG SCH (17:00)
== END 2019-10-13 17:14 | disposition home or self-care (01) ==
LOC: ERS 12:11
DX: O02.1 Missed abortion (principal); J45.909 Unspecified asthma, uncomplicated
CPT/HCPCS: 36415; 76856; 84702; 85025; 86850; 86900; 86901